=== PATIENT | female | born 1990 | race Caucasian/White ===

== ENCOUNTER 2017-07-01 09:24 | Emergency (ER) | payer BC ==
[2017-07-01] MEDS ORDERED: KETOROLAC TROMETHAMINE INJ/PF 30 MG/1 ML SDV IV ONE (10:14)
[2017-07-01] MEDS ORDERED: NORMAL SALINE 1000 ML 1,000 ML IV ONE (10:14)
[2017-07-01] MEDS ORDERED: ONDANSETRON HCL INJ/PF 4 MG/2 ML SDV IV ONE (10:15)
--- NOTE | 2017-07-01 10:42 | ER Document Report ---
ED Medical Screen (RME) - General Chief Complaint: Lower Abdominal Pain Stated Complaint: ABDOMINAL PAIN Time Seen by Provider: 07/01/17 10:03 Notes: 26-year-old female who complains of a sudden onset of cramping squeezing right lower quadrant abdominal pain associated with nausea. Also admits that she has frequent nausea and vomiting, does not think that this nausea and vomiting is any different than her usual but states that the pain is much worse than her usual. Admits to being on her menstrual cycle for the past 3 weeks and the bleeding is getting later. Has not taken any medication for her pain since she states all pain medication makes her vomit and it does not make her feel any better. TRAVEL OUTSIDE OF THE [place] IN LAST 30 DAYS: No - Related Data Allergies/Adverse Reactions: acetaminophen [From Tylenol] Allergy (Mild, Verified 07/01/17 09:35) aspirin [Aspirin] Allergy (Verified 07/01/17 09:35) Past Medical History - General Information source: Patient - Social History Chew tobacco use (# tins/day): No Frequency of alcohol use: None Drug Abuse: None Neurological Medical History: Reports: Hx Migraine, Hx Seizures Endocrine Medical History: Reports: Hx Hypothyroidism Renal/ Medical History: Denies: Hx Kidney Stones, Hx Peritoneal Dialysis GI Medical History: Reports: Hx Gastroesophageal Reflux Disease, Hx Irritable Bowel, Hx Ulcer Skin Medical History: Reports Hx Eczema Psychiatric Medical History: Reports: Hx Depression Past Surgical History: Reports: Hx Section - Immunizations Immunizations up to date: Yes Hx Diphtheria, Pertussis, Tetanus Vaccination: Yes Physical Exam - Vital signs Vitals: Temp Pulse Resp BP Pulse Ox 98.6 F 111 H 24 H 141/100 H 99 07/01/17 09:34 07/01/17 09:34 07/01/17 09:34 07/01/17 09:34 07/01/17 09:34 - Notes Notes: Bent over, holding her abdomen, appears uncomfortable, right lower quadrant and suprapubic tenderness palpation. Course - Vital Signs Vital signs: Temp Pulse Resp BP Pulse Ox 98.6 F 111 H 24 H 141/100 H 99 07/01/17 09:34 07/01/17 09:34 07/01/17 09:34 07/01/17 09:34 07/01/17 09:34 - Laboratory Result Diagrams: 07/01/17 10:20 07/01/17 10:20
[2017-07-01 10:53] LABS: ABSOLUTE LYMPHOCYTES (AUTO) 1.2 10^3/uL (0.5-4.7); ABSOLUTE MONOCYTES (AUTO) 0.4 10^3/uL (0.1-1.4); ABSOLUTE NEUT (AUTO) 7.9 10^3/uL (1.7-8.2); BASOPHILS % (AUTO) 0.5 % (0-2); EOSINOPHILS % (AUTO) 0.3 % (0-6); HEMATOCRIT 42.7 % (36.0-47.0); HEMOGLOBIN 14.5 g/dL (12.0-15.5); HGB HCT DIFFERENCE 0.8; LYMPHOCYTES % (AUTO) 12.3 % (13-45); MEAN CORPUSCULAR HEMOGLOBIN 28.9 pg (27.0-33.4); MEAN CORPUSCULAR HGB CONC 33.9 g/dL (32.0-36.0); MEAN CORPUSCULAR VOLUME 85 fl (80-97); MONOCYTES % (AUTO) 4.6 % (3-13); RED CELL DISTRIBUTION WIDTH 12.9 % (11.5-14.0); SEGMENTED NEUTROPHILS % (AUTO) 82.3 % (42-78); WHITE BLOOD COUNT 9.6 10^3/uL (4.0-10.5)
--- NOTE | 2017-07-01 11:09 | ER Document Report ---
ED GI/ - General Chief Complaint: Lower Abdominal Pain Stated Complaint: ABDOMINAL PAIN Time Seen by Provider: 07/01/17 10:03 Mode of Arrival: Ambulatory Information source: Patient TRAVEL OUTSIDE OF THE [place] IN LAST 30 DAYS: No - HPI Patient complains to provider of: Pelvic pain Onset: This morning Timing/Duration: Sudden Quality of pain: Sharp, Throbbing Severity at maximum: Severe Severity in ED: Moderate Pain Level: 4 Location: Pelvis Associated symptoms: Nausea, Vomiting Exacerbated by: Denies Relieved by: Denies Similar symptoms previously: Yes Recently seen / treated by doctor: Yes Notes: 07/01/17 11:07 Patient is a 26-year-old female presenting to the emergency room today complaining of sharp throbbing right-sided pelvic pain that woke her from sleep around 5:00 this morning and has been worsening since, she reports a history of endometriosis as well as gastroparesis, she did have a few episodes of vomiting today despite taking Nexium, and continued nausea, she generally has vaginal bleeding for 3 weeks out of the month and then has 1 week off, she has tried several different medical management techniques in the past including oral control, she denies any vaginal discharge besides bleeding, no dysuria or urinary frequency, no fever, no diarrhea - Related Data Allergies/Adverse Reactions: acetaminophen [From Tylenol] Allergy (Mild, Verified 07/01/17 09:35) aspirin [Aspirin] Allergy (Verified 07/01/17 09:35) Past Medical History - General Information source: Patient - Social History Smoking Status: Never Smoker Chew tobacco use (# tins/day): No Frequency of alcohol use: None Drug Abuse: None Family History: Arthritis, CAD, CVA, DM, Hyperlipidemia, Hypertension, Malignancy, Thyroid Disfunction Patient has suicidal ideation: No Patient has homicidal ideation: No Neurological Medical History: Reports: Hx Migraine, Hx Seizures Endocrine Medical History: Reports: Hx Hypothyroidism Renal/ Medical History: Denies: Hx Kidney Stones, Hx Peritoneal Dialysis GI Medical History: Reports: Hx Gastroesophageal Reflux Disease, Hx Irritable Bowel, Hx Ulcer Skin Medical History: Reports Hx Eczema Psychiatric Medical History: Reports: Hx Depression Past Surgical History: Reports: Hx Section - Immunizations Immunizations up to date: Yes Hx Diphtheria, Pertussis, Tetanus Vaccination: Yes Review of Systems - Review of Systems Constitutional: No symptoms reported EENT: No symptoms reported Cardiovascular: No symptoms reported Respiratory: No symptoms reported Gastrointestinal: See HPI Genitourinary: See HPI Female Genitourinary: See HPI Musculoskeletal: No symptoms reported Skin: No symptoms reported Hematologic/Lymphatic: No symptoms reported Neurological/Psychological: No symptoms reported -: Yes All other systems reviewed and negative Physical Exam - Vital signs Vitals: Temp Pulse Resp BP Pulse Ox 98.6 F 111 H 24 H 141/100 H 99 07/01/17 09:34 07/01/17 09:34 07/01/17 09:34 07/01/17 09:34 07/01/17 09:34 Interpretation: Tachycardic - General General appearance: Appears well, Alert - HEENT Head: Normocephalic, Atraumatic Eyes: Normal Pupils: PERRL - Respiratory Respiratory status: No respiratory distress Chest status: Nontender Breath sounds: Normal Chest palpation: Normal - Cardiovascular Rhythm: Regular Heart sounds: Normal auscultation Murmur: No - Abdominal Inspection: Normal Distension: No distension Bowel sounds: Normal Tenderness: Tender - Tenderness to palpate in the right pelvis Organomegaly: No organomegaly - Back Back: Normal, Nontender - Extremities General upper extremity: Normal inspection, Nontender, Normal color, Normal ROM , Normal temperature General lower extremity: Normal inspection, Nontender, Normal color, Normal ROM , Normal temperature, Normal weight bearing. No: Omayra's sign - Neurological Neuro grossly intact: Yes Cognition: Normal Orientation: AAOx4 [place] Coma Scale Eye Opening: Spontaneous [place] Coma Scale Verbal: Oriented [place] Coma Scale Motor: Obeys Commands [place] Coma Scale Total: 15 Speech: Normal Motor strength normal: LUE, RUE, LLE, RLE Sensory: Normal - Psychological Associated symptoms: Normal affect, Normal mood - Skin Skin Temperature: Warm Skin Moisture: Dry Skin Color: Normal Course - Re-evaluation Re-evalutation: 07/01/17 16:29 Patient resting comfortably, reports feeling much better, lab and imaging findings were discussed with patient at bedside which are unremarkable, patient was discharged with prescription for pain medication and Colace, advised to follow-up with a primary care provider and 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 as well as OB/ CT TECH or return if symptoms worsen, patient acknowledges understanding and agreement with this plan - Vital Signs Vital signs: Temp Pulse Resp BP Pulse Ox 98.2 F 111 H 16 105/88 H 100 07/01/17 14:55 07/01/17 09:34 07/01/17 14:55 07/01/17 14:55 07/01/17 14:55 - Laboratory Result Diagrams: 07/01/17 10:20 07/01/17 10:20 Laboratory results interpreted by me: 07/01/17 07/01/17 07/01/17 10:20 10:20 10:20 Seg Neutrophils % 82.3 H Lymphocytes % 12.3 L Calcium 10.5 H Total Protein 8.6 H Albumin 5.1 H Urine Blood SMALL H - Diagnostic Test Radiology reviewed: Image reviewed, Reports reviewed Discharge - Discharge Clinical Impression: Abdominal pain Qualifiers: Abdominal location: generalized Qualified Code(s): R10.84 - Generalized abdominal pain Condition: Stable Disposition: HOME, SELF-CARE Instructions: Abdominal Pain ([facility]) Additional Instructions: Follow up with your primary care provider in one to 2 days. Return to the emergency room immediately if symptoms worsen or any additional concerns. Prescriptions: Docusate Sodium [Colace 100 mg Capsule] 100 mg PO BID #60 capsule Oxycodone HCl 5 mg PO Q6 #10 tablet
[2017-07-01 11:22] LABS: ALANINE AMINOTRANSFERASE 38 U/L (9-52); ALBUMIN 5.1 g/dL (3.5-5.0); ALKALINE PHOSPHATASE 80 U/L (38-126); ANION GAP 13 (5-19); ASPARTATE AMINO TRANSFERASE 24 U/L (14-36); BILIRUBIN,DIRECT 0.4 mg/dL (0.0-0.4); BILIRUBIN,TOTAL 0.6 mg/dL (0.2-1.3); BLOOD UREA NITROGEN 9 mg/dL (7-20); CALCIUM 10.5 mg/dL (8.4-10.2); CARBON DIOXIDE 27 mmol/L (22-30); CHLORIDE 104 mmol/L (98-107); CREATININE RESULT 0.88 mg/dL (0.52-1.25); GLUCOSE 99 mg/dL (75-110); POTASSIUM 4.5 mmol/L (3.6-5.0); SODIUM 143.8 mmol/L (137-145); TOTAL PROTEIN 8.6 g/dL (6.3-8.2)
--- NOTE | 2017-07-01 12:19 | RADIOLOGY REPORT (SQ) ---
EXAM DESCRIPTION: U/S NON OB PEL TV W/DOPPLER COMPLETED DATE/TIME: 07/01/2017 12:09 pm REASON FOR STUDY: right pelvic pain COMPARISON: 12/29/2013 TECHNIQUE: Dynamic and static grayscale images acquired of the pelvis via transvaginal approach and recorded on PACS. Additional selected color Doppler and spectral images recorded. LIMITATIONS: None. FINDINGS: UTERUS: Contour normal. No mass. ENDOMETRIAL STRIPE: No thickening. There is a small amount of fluid in the endometrial canal. CERVIX: 3.1 cm. No nabothian cysts. RIGHT OVARY: No abnormal masses. RIGHT OVARY DOPPLER: Normal arterial vascular flow without evidence for torsion. LEFT OVARY: No abnormal masses. LEFT OVARY DOPPLER: Normal arterial vascular flow without evidence for torsion. FREE FLUID: None noted. OTHER: No other significant finding. MEASUREMENTS: UTERUS: 7.9 x 4.1 x 4.3 cm. ENDOMETRIAL STRIPE: 6 mm. RIGHT OVARY: 3.2 x 1.9 x 1.7 cm. LEFT OVARY: 2 x 2 x 2.1 cm. IMPRESSION: NORMAL TRANSVAGINAL PELVIC ULTRASOUND. TECHNICAL DOCUMENTATION: JOB ID: [id number]- All Rights Reserved
--- NOTE | 2017-07-01 13:15 | RADIOLOGY REPORT (SQ) ---
EXAM DESCRIPTION: CT ABD/PELVIS WITH IV ONLY COMPLETED DATE/TIME: 07/01/2017 12:58 pm REASON FOR STUDY: rlq pain COMPARISON: Pelvic ultrasound 07/01/2017 TECHNIQUE: CT scan of the abdomen and pelvis performed using helical scanning technique with dynamic intravenous contrast injection. No oral contrast. Images reviewed with lung, soft tissue, and bone windows. Reconstructed coronal and sagittal MPR imag es reviewed. Delayed images for evaluation of the urinary system also acquired. All images stored on PACS. All CT scanners at this facility use dose modulation, iterative reconstruction, and/or weight based d osing when appropriate to reduce radiation dose to as low as reasonably achievable (ALARA). [facility]: Dose Right [facility]: CareDose [facility]: Dose Right [facility]: Teradose 4D [facility]: [employer] CONTRAST TYPE AND DOSE: contrast/concentration: Isovue 370.00 mg/ml; Total Contrast Delivered: 71.0 ml; Total Saline Delivered: 66.0 ml RENAL FUNCTION: None required. The patient is less than 50 years old. RADIATION DOSE: Up-to-date CT equipment and radiation dose reduction techniques were employed. CTDIv ol: 7.6 - 10.8 mGy. DLP: 855 mGy-cm.. LIMITATIONS: None. FINDINGS: LOWER CHEST: No significant findings. No nodules or infiltrates. LIVER: Normal size. No masses. No dilated ducts. SPLEEN: Normal size. No focal lesions. PANCREAS: No masses. No significant calcifications. No adjacent inflammation or peripancreatic fluid collections. Pancreatic duct not dilated. GALLBLADDER: No identified stones by CT criteria. No inflammatory changes to suggest cholecystitis. ADRENAL GLANDS: No significant masses or asymmetry. RIGHT KIDNEY AND URETER: No solid masses. No significant calcifications. No hydronephrosis or hyd roureter. LEFT KIDNEY AND URETER: No solid masses. No significant calcifications. No hydronephrosis or hydr oureter. AORTA AND VESSELS: No aneurysm. No dissection. Renal arteries, SMA, celiac without stenosis. RETROPERITONEUM: No retroperitoneal adenopathy, hemorrhage or masses. BOWEL AND PERITONEAL CAVITY: No masses or inflammatory changes. No free fluid or peritoneal masses. Moderate stool in the ascending colon and transverse colon. APPENDIX: Normal. Best shown on coronal reconstruction images 31 through 35 PELVIS: No mass. No free fluid. Normal bladder. ABDOMINAL WALL: No masses. No hernias. 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 OTHER: No other significant finding. IMPRESSION: NO SIGNIFICANT OR ACUTE FINDING IN THE ABDOMEN OR PELVIS ON CT SCAN WITH IV CONTRAST. TECHNICAL DOCUMENTATION: JOB ID: [id number] Quality ID # [id number]: Final reports with documentation of one or more dose reduction techniques (e.g., Au tomated exposure control, adjustment of the mA and/or kV according to patient size, use of iterative reconstruction technique) 2010 [employer]- All Rights Reserved
[2017-07-01 14:13] LABS: APPEARANCE,URINE CLEAR; BILIRUBIN,URINE NEGATIVE (NEGATIVE); GLUCOSE, URINE NEGATIVE (NEGATIVE); KETONES,URINE NEGATIVE (NEGATIVE); LEUKOCYTE ESTERASE,URINE NEGATIVE (NEGATIVE); NITRITE,URINE NEGATIVE (NEGATIVE); PROTEIN,URINE NEGATIVE (NEGATIVE); URINE SPECIFIC GRAVITY 1.006; UROBILINOGEN,URINE NEGATIVE mg/dL (<2.0)
[2017-07-01 14:56] VITALS: BP 105/88
== END 2017-07-01 15:00 | disposition home or self-care (01) ==
LOC: ER 09:24
DX: R10.84 Generalized abdominal pain (principal); R10.30 Lower abdominal pain, unspecified; R10.2 Pelvic and perineal pain; R11.2 Nausea with vomiting, unspecified; E03.9 Hypothyroidism, unspecified; Z88.6 Allergy status to analgesic agent
CPT/HCPCS: 99284; 96361; 96374; 96375; 36415; 84703; 85025; 80053; 81001; 76830; 93976; 74177; J1885; J2405; J7030

== ENCOUNTER 2018-03-10 22:51 | Emergency (ER) | payer BC ==
--- NOTE | 2018-03-10 23:08 | ER Document Report ---
ED Extremity Problem, Lower - General Chief Complaint: Knee Injury Stated Complaint: LEFT LEG INJURY Time Seen by Provider: 03/10/18 22:57 Notes: Patient is a 27-year-old female that comes by EMS for chief complaint of leg injury and ankle injury. She states she was running, she accidentally stepped in a hole where a water line cap displaced when she was running, she inverted her left ankle, she reports pain up her leg, and the ankle, and in the foot. She was given 75 mcg of fentanyl IV by EMS. She denies any other injuries. She takes no daily medications. LMP within the past month. TRAVEL OUTSIDE OF THE [place] IN LAST 30 DAYS: No - Related Data Allergies/Adverse Reactions: acetaminophen [From Tylenol] Allergy (Mild, Verified 07/01/17 09:35) aspirin [Aspirin] Allergy (Verified 07/01/17 09:35) Past Medical History - General Information source: Patient - Social History Smoking Status: Never Smoker Frequency of alcohol use: None Drug Abuse: None Lives with: Family Family History: Arthritis, CAD, CVA, DM, Hyperlipidemia, Hypertension, Malignancy, Thyroid Disfunction Neurological Medical History: Reports: Hx Migraine, Hx Seizures Endocrine Medical History: Reports: Hx Hypothyroidism Renal/ Medical History: Denies: Hx Kidney Stones, Hx Peritoneal Dialysis GI Medical History: Reports: Hx Gastroesophageal Reflux Disease, Hx Irritable Bowel, Hx Ulcer Skin Medical History: Reports Hx Eczema Psychiatric Medical History: Reports: Hx Depression Past Surgical History: Reports: Hx Section - Immunizations Immunizations up to date: Yes Hx Diphtheria, Pertussis, Tetanus Vaccination: Yes Review of Systems - Review of Systems Constitutional: No symptoms reported EENT: No symptoms reported Cardiovascular: No symptoms reported Respiratory: No symptoms reported Gastrointestinal: No symptoms reported Genitourinary: No symptoms reported Female Genitourinary: No symptoms reported Musculoskeletal: See HPI Skin: No symptoms reported Hematologic/Lymphatic: No symptoms reported Neurological/Psychological: No symptoms reported Physical Exam - Vital signs Vitals: Temp Pulse Resp BP Pulse Ox 98.2 F 99 19 116/74 100 03/11/18 00:59 03/11/18 00:59 03/11/18 00:59 03/11/18 00:59 03/11/18 00:59 - Notes Notes: GENERAL: Alert, interacts well. No acute distress. HEAD: Normocephalic, atraumatic. EYES: Pupils equal, round, and reactive to light. Extraocular movements intact. ENT: Oral mucosa moist, tongue midline. NECK: Full range of motion. Supple. Trachea midline. LUNGS: Clear to auscultation bilaterally, no wheezes, rales, or rhonchi. No respiratory distress. HEART: Regular rate and rhythm. No murmur ABDOMEN: Soft, non-tender. Non-distended. Bowel sounds present in all 4 quadrants. EXTREMITIES: M tender over the left lateral malleolus, dorsal left foot, and over the left fibula area proximally. No swelling except minimal swelling around the malleolus, normal distal neurovascular exam, normal range of motion of ankle, knee, hip. Normal lower extremity exam otherwise. BACK: no cervical, thoracic, lumbar midline tenderness. No saddle anesthesia, normal distal neurovascular exam. NEUROLOGICAL: Alert and oriented x3. Normal speech. [cranial nerves II through XII grossly intact]. PSYCH: Normal affect, normal mood. SKIN: Warm, dry, normal turgor. No rashes or lesions noted. Course - Re-evaluation Re-evalutation: Patient with tenderness over the lateral malleolus, foot, and left fibula area. X-rays all unremarkable, no concerning physical exam findings including no pain out of proportion suggesting compartment syndrome. Suspect this was a sprain. Patient can ambulate. Provided with crutches, ankle stirrup, recommendations, follow-up, return precautions. Patient is not allergic to NSAIDs including aspirin per her report. - Vital Signs Vital signs: Temp Pulse Resp BP Pulse Ox 98.2 F 99 19 116/74 100 03/11/18 00:59 03/11/18 00:59 03/11/18 00:59 03/11/18 00:59 03/11/18 00:59 Procedures - Immobilization Left ankle Pre-Proc Neuro Vasc Exam: Normal Immobilizer type: Ankle stirrup Performed by: RN Post-Proc Neuro Vasc Exam: Normal Alignment checked and good: Yes Discharge - Discharge Clinical Impression: Left leg pain, Left foot pain Left ankle injury Qualifiers: Encounter type: initial encounter Qualified Code(s): S99.912A - Unspecified injury of left ankle, initial encounter Condition: Stable Disposition: HOME, SELF-CARE Additional Instructions: Your evaluation is consistent with a sprain to the left ankle, no fractures, dislocation, or other concerning abnormality noted. It is important that you ice (3-4 times a day for 10-15 minutes), elevate, use the crutches and brace, and take an anti-inflammatory. Return to normal activity as tolerated. Return for any concerning symptoms including severe swelling or pain. Prescriptions: Naproxen 500 mg PO BID PRN #14 tablet PRN Reason: Forms: Return to Work
[2018-03-10] MEDS ORDERED: MORPHINE SULFATE 10 MG/ML INJ IV ONE (23:19)
[2018-03-10] MEDS ORDERED: ONDANSETRON HCL INJ/PF 4 MG/2 ML SDV IV ONE (23:19)
--- NOTE | 2018-03-11 00:13 | RADIOLOGY REPORT (SQ) ---
EXAM DESCRIPTION: XR TIBIA FIBULA 2 VIEWS CLINICAL HISTORY: 27 years Female, inverted ankle, leg pain COMPARISON: None. Findings: Bones, joints, and soft tissues of the XR LEFT TIBIA FIBULA 2 VIEWS appear intact. IMPRESSION: No acute findings.
--- NOTE | 2018-03-11 00:14 | RADIOLOGY REPORT (SQ) ---
EXAM DESCRIPTION: XR FOOT 3 OR MORE VIEWS CLINICAL HISTORY: 27 years Female, injury, pain COMPARISON: None. Findings: Bones, joints, and soft tissues of the XR LEFT FOOT 3 VIEWS appear intact. IMPRESSION: No acute findings.
--- NOTE | 2018-03-11 00:14 | RADIOLOGY REPORT (SQ) ---
EXAM DESCRIPTION: XR ANKLE 2 VIEWS CLINICAL HISTORY: 27 years Female, ankle inversion, pain, swelling COMPARISON: None. Findings: Bones, joints, and soft tissues of the XR LEFT ANKLE 3 VIEWS appear intact. IMPRESSION: No acute findings.
[2018-03-11 01:00] VITALS: BP 116/74
== END 2018-03-11 01:30 | disposition home or self-care (01) ==
LOC: ER 22:51
DX: S99.912A Unspecified injury of left ankle, initial encounter (principal); M79.605 Pain in left leg; M79.672 Pain in left foot; W22.09XA Striking against other stationary object, initial encounter; Y93.02 Activity, running; Z88.6 Allergy status to analgesic agent
CPT/HCPCS: 99284; 96374; 96375; 73610; 73630; 73590; L4350; J2270; J2405

== ENCOUNTER 2018-07-21 20:59 | Emergency (ER) | payer BC ==
[2018-07-21 22:08] LABS: ABSOLUTE EOSINOPHILS # (AUTO) 0.1 10^3/uL (0.0-0.6); ABSOLUTE MONOCYTES (AUTO) 0.6 10^3/uL (0.1-1.4); ABSOLUTE NEUT (AUTO) 8.6 10^3/uL (1.7-8.2); BASOPHILS % (AUTO) 0.4 % (0-2); EOSINOPHILS % (AUTO) 0.5 % (0-6); HEMATOCRIT 40.3 % (36.0-47.0); HEMOGLOBIN 13.7 g/dL (12.0-15.5); LYMPHOCYTES % (AUTO) 17.6 % (13-45); MEAN CORPUSCULAR HEMOGLOBIN 27.9 pg (27.0-33.4); MEAN CORPUSCULAR HGB CONC 33.9 g/dL (32.0-36.0); MEAN CORPUSCULAR VOLUME 82 fl (80-97); MONOCYTES % (AUTO) 5.2 % (3-13); PLATELET COUNT 499 10^3/uL (150-450); RED BLOOD COUNT 4.89 10^6/uL (3.72-5.28); RED CELL DISTRIBUTION WIDTH 13.3 % (11.5-14.0); SEGMENTED NEUTROPHILS % (AUTO) 76.3 % (42-78); TOTAL CELLS COUNTED % (AUTO) 100 %; WHITE BLOOD COUNT 11.3 10^3/uL (4.0-10.5)
[2018-07-21 22:11] LABS: APPEARANCE,URINE CLEAR; BILIRUBIN,URINE NEGATIVE (NEGATIVE); COLOR,URINE STRAW; GLUCOSE, URINE NEGATIVE (NEGATIVE); KETONES,URINE NEGATIVE (NEGATIVE); LEUKOCYTE ESTERASE,URINE NEGATIVE (NEGATIVE); NITRITE,URINE NEGATIVE (NEGATIVE); PROTEIN,URINE NEGATIVE (NEGATIVE); URINE SPECIFIC GRAVITY 1.008; UROBILINOGEN,URINE NEGATIVE mg/dL (<2.0)
[2018-07-21 22:25] LABS: ALANINE AMINOTRANSFERASE 17 U/L (9-52); ALBUMIN 4.7 g/dL (3.5-5.0); ALKALINE PHOSPHATASE 71 U/L (38-126); ANION GAP 12 (5-19); ASPARTATE AMINO TRANSFERASE 19 U/L (14-36); BILIRUBIN,DIRECT 0.2 mg/dL (0.0-0.4); BILIRUBIN,TOTAL 0.5 mg/dL (0.2-1.3); BLOOD UREA NITROGEN 8 mg/dL (7-20); CALCIUM 10.4 mg/dL (8.4-10.2); CARBON DIOXIDE 23 mmol/L (22-30); CHLORIDE 106 mmol/L (98-107); GLUCOSE 108 mg/dL (75-110); LIPASE 198.5 U/L (23-300); POTASSIUM 4.5 mmol/L (3.6-5.0); SODIUM 141.4 mmol/L (137-145)
[2018-07-21] MEDS ORDERED: KETOROLAC TROMETHAMINE INJ/PF 30 MG/1 ML SDV IV ONE (22:47)
[2018-07-21] MEDS ORDERED: HYOSCYAMINE SULFATE 0.125 MG TABLET PO ONE (22:47)
[2018-07-21] MEDS ORDERED: HALOPERIDOL LACTATE INJ 5 MG/1 ML VIAL IV ONE (22:47)
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
[2018-07-21] MEDS ORDERED: HYOSCYAMINE SULFATE 0.125 MG TABLET ONE (23:03)
[2018-07-22] MEDS ORDERED: DIPHENHYDRAMINE HCL 50 MG/ML VIAL IV ONE ×2 (00:24→05:55)
[2018-07-22] MEDS ORDERED: DIPHENHYDRAMINE HCL 50 MG/ML VIAL ONE (00:39)
[2018-07-22] MEDS ORDERED: NORMAL SALINE 1000 ML 1,000 ML IV ONE ×3 (01:06→06:48)
[2018-07-22] MEDS ORDERED: LORAZEPAM INJ 2 MG/1 ML VIAL IV ONE ×2 (01:23→04:34)
--- NOTE | 2018-07-22 04:38 | ER Document Report ---
Doctor's Note Notes: 07/22/18 04:38 Notified by nursing staff that patient remains tachycardic at 120, all of her other symptoms are solved and she is feeling much better, additional IV fluids and 1 mg of Ativan, will reevaluate for disposition once these medications are administered (TALI ACEVEDO) 07/22/18 07:40 Patient signed out to me by Dr. Tamiko james who received the patient in signout by Dr. Perla. Patient was seen for abdominal pain and received Haldol which did resolve her abdominal pain. She did have a dystonic reaction for which she received Benadryl and Levsin. Patient has been resting comfortably and has no complaints but has remained tachycardic. After reviewing the side effects of the medication she receives it does appear that Levsin can cause tachycardia. D-dimer was obtained and negative. EKG shows sinus tachycardia at a rate of 142. Patient has had fluctuating heart rate between 110 and 133. On review of her previous medical records she does have a history of tachycardia with heart rates in the 110-115. We will continue to monitor. Patient reevaluated and no longer tremulous. She denies any abdominal pain. Heart rate is now 106. Patient will be discharged home. 07/22/18 08:11 (JENISE VERDUGO)
[2018-07-22] MEDS ORDERED: LORAZEPAM INJ 2 MG/1 ML VIAL ONE (07:33)
[2018-07-22 09:42] VITALS: BP 112/69
--- NOTE | 2018-07-22 09:42 | EKG REPORT ---
SEVERITY:- ABNORMAL ECG - SINUS TACHYCARDIA BORDERLINE LEFT AXIS DEVIATION : Confirmed by: Jorge Lira MD 22-Jul-2018 09:42:16
[2018-07-22 11:20] LABS: URINE AMPHETAMINES SCREEN NEGATIVE; URINE BARBITURATES SCREEN NEGATIVE; URINE BENZODIAZEPINES SCREEN NEGATIVE; URINE COCAINE SCREEN NEGATIVE; URINE MARIJUANA (THC) SCREEN NEGATIVE; URINE METHADONE SCREEN NEGATIVE; URINE PHENCYCLIDINE SCREEN NEGATIVE
== END 2018-07-22 09:52 | disposition home or self-care (01) ==
LOC: ER 20:59 → UNDOADMOB 07-22 09:34 → EH 07-22 09:34 → ER 07-22 09:52
DX: R10.84 Generalized abdominal pain (principal); R11.0 Nausea; R00.0 Tachycardia, unspecified; T50.905A Adverse effect of unspecified drugs, medicaments and biological substances, initial encounter; Z88.6 Allergy status to analgesic agent; Z87.19 Personal history of other diseases of the digestive system
CPT/HCPCS: 93005; 96376; 99284; 96361; 96374; 96375; 36415; 83690; 85025; 81025; 80053; 81001; 80307; 85379; 93010; J1200; J1630; J1885; J2060; J7030

== ENCOUNTER 2019-08-06 10:57 | Emergency (ER) | payer OTHER, BC ==
[2019-08-06] MEDS ORDERED: KETOROLAC TROMETHAMINE 60 MG/2 ML SDV IM ONE (11:47)
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
[2019-08-06 14:13] VITALS: BP 105/74
== END 2019-08-06 13:53 | disposition home or self-care (01) ==
LOC: ER 10:57
DX: S90.01XA Contusion of right ankle, initial encounter (principal); S90.31XA Contusion of right foot, initial encounter; S93.401A Sprain of unspecified ligament of right ankle, initial encounter; V89.2XXA Person injured in unspecified motor-vehicle accident, traffic, initial encounter; E03.9 Hypothyroidism, unspecified
CPT/HCPCS: 99283; 96374; 73610; 73630; J1885

== ENCOUNTER 2019-10-09 10:49 | Emergency (ER) | payer BC, OTHER ==
[2019-10-09] MEDS ORDERED: ONDANSETRON HCL INJ/PF 4 MG/2 ML SDV IV ONE ×2 (10:57→11:56)
[2019-10-09] MEDS ORDERED: NORMAL SALINE 1000 ML 1,000 ML IV ONE (10:58)
--- NOTE | 2019-10-09 10:59 | ER Document Report ---
ED Medical Screen (RME) - General Chief Complaint: Vomiting/Diarrhea Stated Complaint: VOMITING,DIARRHEA Time Seen by Provider: 10/09/19 10:57 Primary Care Provider: GAVIN GAN MD [Primary Care Provider] - Follow up as needed Mode of Arrival: Wheelchair Notes: 28-year-old female presented to ED for complaint of cough and cold symptoms x3 days that developed into nausea vomiting and diarrhea. She states her GI doctor did give her a prescription for Zofran and she had that at 5:00 this morning but it is not stopped her vomiting. Patient is alert oriented respirations regular nonlabored speaking in full sentences. Complaint of body aches all over. I have greeted and performed a rapid initial assessment of this patient. A comprehensive ED assessment and evaluation of the patient, analysis of test results and completion of medical decision making process will be conducted by an additional ED providers. TRAVEL OUTSIDE OF THE [place] IN LAST 30 DAYS: No - Related Data Allergies/Adverse Reactions: haloperidol [From Haldol] Allergy (Verified 10/09/19 10:52) Past Medical History Neurological Medical History: Reports: Hx Migraine, Hx Seizures Endocrine Medical History: Reports: Hx Hypothyroidism Renal/ Medical History: Denies: Hx Kidney Stones, Hx Peritoneal Dialysis GI Medical History: Reports: Hx Gastroesophageal Reflux Disease, Hx Irritable Bowel, Hx Ulcer Skin Medical History: Reports Hx Eczema Psychiatric Medical History: Reports: Hx Depression Past Surgical History: Reports: Hx Section - Immunizations Immunizations up to date: Yes Hx Diphtheria, Pertussis, Tetanus Vaccination: Yes Physical Exam - Vital signs Vitals: Temp Pulse Resp BP Pulse Ox 98.5 F 122 H 22 H 120/75 98 10/09/19 10:53 10/09/19 10:53 10/09/19 10:53 10/09/19 10:53 10/09/19 10:53 Course - Vital Signs Vital signs: Temp Pulse Resp BP Pulse Ox 98.5 F 122 H 22 H 120/75 98 10/09/19 10:53 10/09/19 10:53 10/09/19 10:53 10/09/19 10:53 10/09/19 10:53 Doctor's Discharge - Discharge Referrals: GAVIN GAN MD [Primary Care Provider] - Follow up as needed
[2019-10-09] MEDS ORDERED: PROMETHAZINE HCL INJ 25 MG/1 ML VIAL IV ONE (11:35)
[2019-10-09 11:51] LABS: ABSOLUTE BASOPHILS # (AUTO) 0.1 10^3/uL (0.0-0.2); ABSOLUTE LYMPHOCYTES (AUTO) 0.7 10^3/uL (0.5-4.7); ABSOLUTE MONOCYTES (AUTO) 0.7 10^3/uL (0.1-1.4); ABSOLUTE NEUT (AUTO) 5.6 10^3/uL (1.7-8.2); BASOPHILS % (AUTO) 0.9 % (0-2); HEMATOCRIT 44.4 % (36.0-47.0); HEMOGLOBIN 14.9 g/dL (12.0-15.5); LYMPHOCYTES % (AUTO) 10.5 % (13-45); MEAN CORPUSCULAR HEMOGLOBIN 28.5 pg (27.0-33.4); MEAN CORPUSCULAR HGB CONC 33.6 g/dL (32.0-36.0); MEAN CORPUSCULAR VOLUME 85 fl (80-97); MONOCYTES % (AUTO) 9.6 % (3-13); PLATELET COUNT 382 10^3/uL (150-450); RED BLOOD COUNT 5.23 10^6/uL (3.72-5.28); RED CELL DISTRIBUTION WIDTH 13.3 % (11.5-14.0); TOTAL CELLS COUNTED % (AUTO) 100 %; WHITE BLOOD COUNT 7.1 10^3/uL (4.0-10.5)
--- NOTE | 2019-10-09 11:54 | ER Document Report ---
ED GI/ - General Chief Complaint: Nausea/Vomiting/Diarrhea Stated Complaint: VOMITING,DIARRHEA Time Seen by Provider: 10/09/19 10:57 Primary Care Provider: GAVIN GAN MD [Primary Care Provider] - Follow up as needed Mode of Arrival: Wheelchair Notes: CHIEF COMPLAINT: Vomiting and abdominal cramping HPI: 28-year-old female presenting to the emergency department complaining of vomiting and diarrhea over the last 3 days with abdominal cramping. No definite fever, patient's child ill with similar over the last week. Patient states that she lost track of how anytime she threw up yesterday, is only had 3 episodes of vomiting today 2 episodes of cramping but no actual bowel movement. Patient did call her PCP and was prescribed Zofran yesterday but states when it would get on her tongue she would gag and then throw up. ROS: See HPI - all other systems were reviewed and are otherwise negative Constitutional: no fever Eyes: no drainage, no blurred vision ENT: no runny nose, no sore throat Cardiovascular: no chest pain Resp: no SOB, no cough GI: + vomiting, + diarrhea, + abdominal pain : no dysuria Integumentary: no rash Allergy: no hives Musculoskeletal: no extremity pain or swelling Neurological: no numbness/tingling, no weakness MEDICATIONS: I agree with the patient medications as charted by the RN. ALLERGIES: I agree with the allergies as charted by the RN. PAST MEDICAL HISTORY/PAST SURGICAL HISTORY: Reviewed and agree as charted by RN. SOCIAL HISTORY: Reviewed and agree as charted by RN. FAMILY HISTORY: No significant familial comorbid conditions directly related to patient complaint EXAM: Reviewed vital signs as charted by RN. CONSTITUTIONAL: Alert and oriented and responds appropriately to questions. Ill- appearing; well-nourished HEAD: Normocephalic; atraumatic EYES: PERRL; Conjunctivae clear, sclerae non-icteric ENT: normal nose; no rhinorrhea; moist mucous membranes; pharynx without lesions noted NECK: Supple without meningismus; non-tender; no cervical lymphadenopathy, no masses CARD: RRR; no murmurs, no clicks, no rubs, no gallops; symmetric distal pulses RESP: Normal chest excursion without splinting or tachypnea; breath sounds clear and equal bilaterally; no wheezes, no rhonchi, no rales, pulse oximetry ABD/GI: Normal bowel sounds; non-distended; soft, tenderness in the right lower quadrant on palpation, no rebound, no guarding; no palpable organomegaly or masses. BACK: The back appears normal and is non-tender to palpation, there is no CVA tenderness EXT: Normal ROM in all joints; non-tender to palpation; no cyanosis, no effusions, no edema SKIN: Pale color for age and race; warm; dry; good turgor; no acute lesions noted NEURO: Moves all extremities equally; Motor and sensory function intact PSYCH: The patient's mood and manner are appropriate. Grooming and personal hygiene are appropriate. MDM: 28-year-old female with nausea vomiting diarrhea with abdominal cramping, her child is ill with something similar. This is likely a viral etiology she did appear somewhat pale and have some right lower quadrant pain imaging was obtained which did not show acute emergent abnormalities. Lab work does not show acute emergent abnormalities. We will orally challenge, give Bentyl, anticipate discharge home if oral challenge successful TRAVEL OUTSIDE OF THE [place] IN LAST 30 DAYS: No - Related Data Allergies/Adverse Reactions: haloperidol [From Haldol] Allergy (Verified 10/09/19 10:52) Home Medications: [facility] Past Medical History - Social History Smoking Status: Never Smoker Chew tobacco use (# tins/day): No Frequency of alcohol use: None Drug Abuse: None Family History: Arthritis, CAD, CVA, DM, Hyperlipidemia, Hypertension, Malignancy, Thyroid Disfunction Patient has suicidal ideation: No Patient has homicidal ideation: No Neurological Medical History: Reports: Hx Migraine, Hx Seizures Endocrine Medical History: Reports: Hx Hypothyroidism Renal/ Medical History: Denies: Hx Kidney Stones, Hx Peritoneal Dialysis GI Medical History: Reports: Hx Gastroesophageal Reflux Disease, Hx Irritable Bowel, Hx Ulcer Skin Medical History: Reports Hx Eczema Psychiatric Medical History: Reports: Hx Depression Past Surgical History: Reports: Hx Section - Immunizations Immunizations up to date: Yes Hx Diphtheria, Pertussis, Tetanus Vaccination: Yes Physical Exam - Vital signs Vitals: Temp Pulse Resp BP Pulse Ox 98.5 F 122 H 22 H 120/75 98 10/09/19 10:53 10/09/19 10:53 10/09/19 10:53 10/09/19 10:53 10/09/19 10:53 Course - Re-evaluation Re-evalutation: 10/09/19 13:27 Patient coloration is much improved. Still complaining of some abdominal cramping but lab work and imaging studies did not suggest an acute process, likely a viral etiology as her child has been ill with similar this week. Will give Bentyl for cramping, oral challenge if successful anticipate discharge home, she has Zofran at home and would prefer to keep trying that medication for nausea as needed 10/09/19 14:17 Patient tolerating oral fluids, heart rate 105 will discharge home - Vital Signs Vital signs: Temp Pulse Resp BP Pulse Ox 98.1 F 105 H 16 118/69 99 10/09/19 14:09 10/09/19 14:09 10/09/19 14:09 10/09/19 14:09 10/09/19 14:09 - Laboratory Result Diagrams: 10/09/19 11:30 10/09/19 11:30 Laboratory results interpreted by me: 10/09/19 10/09/19 11:30 11:30 Lymph % (Auto) 10.5 L Seg Neutrophils % 79.0 H Potassium 5.7 H BUN 5 L Total Protein 8.5 H Discharge - Discharge Clinical Impression: Nausea vomiting and diarrhea, Tachycardia Condition: Good Disposition: HOME, SELF-CARE Additional Instructions: Continue to take Zofran for nausea. Take Bentyl for abdominal cramping. Your imaging studies and lab work today did not show acute emergent abnormalities this is likely that this is viral in nature. Follow-up with your primary care provider for reevaluation in 1 to 2 days call for appointment. If you develop fever greater than 101 or focal abdominal pain return for reevaluation Prescriptions: Dicyclomine HCl [Bentyl 20 mg Tablet] 20 mg PO QID #14 tablet Referrals: GAVIN GAN MD [Primary Care Provider] - Follow up as needed
[2019-10-09 11:58] LABS: ALBUMIN 4.8 g/dL (3.5-5.0); ALKALINE PHOSPHATASE 72 U/L (38-126); ANION GAP 10 (5-19); ASPARTATE AMINO TRANSFERASE 21 U/L (14-36); BILIRUBIN,DIRECT 0.2 mg/dL (0.0-0.4); BILIRUBIN,TOTAL 0.4 mg/dL (0.2-1.3); BLOOD UREA NITROGEN 5 mg/dL (7-20); CALCIUM 9.7 mg/dL (8.4-10.2); CARBON DIOXIDE 26 mmol/L (22-30); CHLORIDE 103 mmol/L (98-107); GLUCOSE 106 mg/dL (75-110); POTASSIUM 5.7 mmol/L (3.6-5.0); TOTAL PROTEIN 8.5 g/dL (6.3-8.2)
[2019-10-09 13:17] LABS: APPEARANCE,URINE CLEAR; BILIRUBIN,URINE NEGATIVE (NEGATIVE); COLOR,URINE STRAW; GLUCOSE, URINE NEGATIVE (NEGATIVE); KETONES,URINE NEGATIVE (NEGATIVE); PROTEIN,URINE NEGATIVE (NEGATIVE); URINE SPECIFIC GRAVITY 1.003; UROBILINOGEN,URINE NEGATIVE mg/dL (<2.0)
--- NOTE | 2019-10-09 13:17 | RADIOLOGY REPORT (SQ) ---
EXAM DESCRIPTION: CT ABD/PELVIS WITH IV ONLY COMPLETED DATE/TIME: 10/09/2019 12:46 pm REASON FOR STUDY: RLQ pain COMPARISON: 07/01/2017 TECHNIQUE: CT scan of the abdomen and pelvis performed using helical scanning technique with dynamic intravenous contrast injection. No oral contrast. Images reviewed with lung, soft tissue, and bone windows. Reconstructed coronal and sagittal MPR images reviewed. Delayed images for evaluation of the urinary system also acquired. All images stored on PACS. All CT scanners at this facility use dose modulation, iterative reconstruction, and/or weight based d osing when appropriate to reduce radiation dose to as low as reasonably achievable (ALARA). [facility]: Dose Right [facility]: CareDose [facility]: Dose Right [facility]: Teradose 4D [facility]: Emitless CONTRAST TYPE AND DOSE: contrast/concentration: Isovue 350.00 mg/ml; Total Contrast Delivered: 81.0 ml; Total Saline Delivered: 68.0 ml RENAL FUNCTION: None required. The patient is less than 50 years old. RADIATION DOSE: CT Rad equipment meets quality standard of care and radiation dose reduction techniq ues were employed. CTDIvol: 6.8 - 9.5 mGy. DLP: 869 mGy-cm.. LIMITATIONS: None. FINDINGS: LOWER CHEST: No significant findings. No nodules or infiltrates. LIVER: Normal size. No masses. No dilated ducts. SPLEEN: Normal size. No focal lesions. PANCREAS: No masses. No significant calcifications. No adjacent inflammation or peripancreatic fluid collections. Pancreatic duct not dilated. GALLBLADDER: No identified stones by CT criteria. No inflammatory changes to suggest cholecystitis. ADRENAL GLANDS: No significant masses or asymmetry. RIGHT KIDNEY AND URETER: No solid masses. No significant calcifications. No hydronephrosis or hyd roureter. LEFT KIDNEY AND URETER: No solid masses. No significant calcifications. No hydronephrosis or hydr oureter. AORTA AND VESSELS: No aneurysm. No dissection. Renal arteries, SMA, celiac without stenosis. RETROPERITONEUM: No retroperitoneal adenopathy, hemorrhage or masses. BOWEL AND PERITONEAL CAVITY: No masses or inflammatory changes. No free fluid or peritoneal masses. APPENDIX: Normal. PELVIS: No mass. No free fluid. Normal bladder. ABDOMINAL WALL: No masses. No hernias. BONES: No significant or acute findings. OTHER: No other significant finding. IMPRESSION: No acute CT abnormality of the abdomen or pelvis to explain right lower quadrant abdomin al pain. Normal appendix. TECHNICAL DOCUMENTATION: JOB ID: [id number] Quality ID # [id number]: Final reports with documentation of one or more dose reduction techniques (e.g., Au tomated exposure control, adjustment of the mA and/or kV according to patient size, use of iterative reconstruction technique) 2010 [employer]- All Rights Reserved Reading location - IP/workstation name: [email or web address]
[2019-10-09] MEDS ORDERED: DICYCLOMINE HCL 20 MG TABLET PO ONE (13:33)
[2019-10-09 14:11] VITALS: BP 118/69
== END 2019-10-09 14:29 | disposition home or self-care (01) ==
LOC: ER 10:49
DX: R11.2 Nausea with vomiting, unspecified (principal); R19.7 Diarrhea, unspecified; R00.0 Tachycardia, unspecified; R10.31 Right lower quadrant pain; R10.813 Right lower quadrant abdominal tenderness; Z88.8 Allergy status to other drugs, medicaments and biological substances; Z87.19 Personal history of other diseases of the digestive system
CPT/HCPCS: 99284; 96361; 96374; 36415; 84703; 85025; 80053; 81001; 74177; J3490; J2405; J7030

== ENCOUNTER 2019-12-03 09:36 | Emergency (ER) | payer BC ==
--- NOTE | 2019-12-03 10:35 | ER Document Report ---
HPI - HPI Time Seen by Provider: 12/03/19 10:25 Pain Level: 3 Context: Patient is a 29-year-old female who presents emergency department with a chief complaint of right forearm pain. Patient reports this morning she was walking her dog outside when she was attacked by another dog. She reports that she was wearing multiple layers of clothing and that the dog clinched on and bit her right forearm. Patient reports there was no puncture of the skin. She states that animal control is aware and a report has been made. She states there is no abrasion or puncture wound. Patient reports she has had right forearm pain since the incident. Patient has not taken any medication for her discomfort. - REPRODUCTIVE Reproductive: DENIES: : - MUSCULOSKELETAL Musculoskeletal: REPORTS: Extremity pain - right arm Past Medical History - General Information source: Patient - Social History Smoking Status: Never Smoker Frequency of alcohol use: None Drug Abuse: None Lives with: Family Family History: Arthritis, CAD, CVA, DM, Hyperlipidemia, Hypertension, Malignancy, Thyroid Disfunction Patient has suicidal ideation: No Patient has homicidal ideation: No - Past Medical History Cardiac Medical History: Reports: None Pulmonary Medical History: Reports: None EENT Medical History: Reports: None Neurological Medical History: Reports: Hx Migraine, Hx Seizures Endocrine Medical History: Reports: Hx Hypothyroidism Renal/ Medical History: Reports: None. Denies: Hx Kidney Stones, Hx Peritoneal Dialysis Malignancy Medical History: Reports: None GI Medical History: Reports: Hx Gastroesophageal Reflux Disease, Hx Irritable Bowel, Hx Ulcer Musculoskeletal Medical History: Reports None Skin Medical History: Reports Hx Eczema Psychiatric Medical History: Reports: Hx Depression Traumatic Medical History: Reports: None Infectious Medical History: Reports: None Past Surgical History: Reports: Hx Section - Immunizations Immunizations up to date: Yes Hx Diphtheria, Pertussis, Tetanus Vaccination: Yes Vertical Provider Document - CONSTITUTIONAL Agree With Documented VS: Yes Exam Limitations: No Limitations General Appearance: No Apparent Distress - INFECTION CONTROL TRAVEL OUTSIDE OF THE [place] IN LAST 30 DAYS: No - HEENT HEENT: Atraumatic, Normal ENT Exam, Normocephalic, PERRLA - NECK Neck: Normal Inspection - RESPIRATORY Respiratory: Breath Sounds Normal, No Respiratory Distress - CARDIOVASCULAR Cardiovascular: Regular Rate, Regular Rhythm - GI/ABDOMEN Gastrointestinal: Abdomen Soft, Abdomen Non-Tender, Normal Bowel Sounds - MUSCULOSKELETAL/EXTREMETIES Notes: Patient has tenderness with palpation to the dorsal aspect of the right forearm. There is no laceration, puncture wound or abrasion. No open wounds. No significant edema or ecchymosis. - NEURO Level of Consciousness: Awake, Alert, Appropriate Course - Re-evaluation Re-evalutation: 12/03/19 10:35 We will obtain an x-ray to make sure that the patient did not obtain a fracture dislocation from the bite of the animal. Patient does not require a Tdap or rabies vaccination as there was no break in the skin. Patient reports she did have multiple layers of clothing on. Animal control is aware per the patient. I did offer Tylenol and ibuprofen for pain. Patient reports she has chronic nausea and although she is not experiencing this at this time she does not want anything for her discomfort. 12/03/19 11:53 Heart rate significantly improved since arrival. Patient stable for discharge. Patient instructed that her x-ray was normal and that she has a deep tissue contusion. Ibuprofen given. Encouraged to ice and elevate. - Vital Signs Vital signs: Temp Pulse Resp BP Pulse Ox 98.1 F 120 H 20 111/66 95 12/03/19 09:48 12/03/19 09:48 12/03/19 09:48 12/03/19 09:48 12/03/19 09:48 Discharge - Discharge Clinical Impression: Right forearm injury Qualifiers: Encounter type: initial encounter Qualified Code(s): S59.911A - Unspecified injury of right forearm, initial encounter Condition: Stable Disposition: HOME, SELF-CARE Additional Instructions: *Today was seen in the emergency department for the chief complaint of dog bite. There is no break in the skin and you do not require any rabies vaccinations or tetanus. Your injury is due to a contusion which is a crushing of the deep tissues. This can be significantly painful. I am prescribing you 800 mg ibup rofens. This is an NSAID. Make sure you take this with food. Use ice packs to the area. Do expect some bruising and swelling. Please keep the arm elevated. Contusion Your injury has resulted in a contusion -- a crushing of the deep tissues. No injury to important structures was detected during the physician's exam. Contusions vary in the amount of pain they cause, and in the length of time required for healing. Typically, the area will become bruised, and will remain painful to touch for two or three weeks. However, most patients are back to working and playing within a few days. After the initial period of rest and cold-packs, your symptoms (together with the doctor's recommendations) will determine how rapidly you can get back to full activity. Usually this means "do what feels okay, but don't do things that hurt." If re-examination was recommended, it's important to follow up as instructed. Call the doctor or return any time if pain increases, if swelling becomes severe, if you develop numbness or weakness in an injured extremity, or if any other alarming symptoms occur. Prescriptions: Ibuprofen [Motrin 800 mg Tablet] 800 mg PO Q8H PRN #30 tab PRN Reason: Referrals: GAVIN GAN MD [Primary Care Provider] - Follow up as needed
--- NOTE | 2019-12-03 11:08 | RADIOLOGY REPORT (SQ) ---
EXAM DESCRIPTION: FOREARM RIGHT COMPLETED DATE/TIME: 12/03/2019 10:56 am REASON FOR STUDY: Right forearm pain, bit by dog COMPARISON: None. NUMBER OF VIEWS: Two views. TECHNIQUE: Two radiographic images acquired of the right forearm, including elbow and wrist in at le ast one projection. LIMITATIONS: None. FINDINGS: MINERALIZATION: Normal. BONES: No fracture dislocation. No periosteal reaction. SOFT TISSUES: No soft tissue swelling or radiopaque foreign body. OTHER: No other finding. IMPRESSION: No acute osseous abnormality of the right forearm. TECHNICAL DOCUMENTATION: JOB ID: [id number] 2010 [employer]- All Rights Reserved Reading location - IP/workstation name: [email or web address]
[2019-12-03 11:47] VITALS: BP 110/70
== END 2019-12-03 11:45 | disposition home or self-care (01) ==
LOC: ER 09:36
DX: S59.911A Unspecified injury of right forearm, initial encounter (principal); M79.631 Pain in right forearm; W54.0XXA Bitten by dog, initial encounter
CPT/HCPCS: 99283

== ENCOUNTER 2020-01-17 09:05 | Emergency (ER) | payer BC ==
[2020-01-17] MEDS ORDERED: ONDANSETRON HCL INJ/PF 4 MG/2 ML SDV IV ONE ×2 (09:23→11:12)
[2020-01-17] MEDS ORDERED: NORMAL SALINE 1000 ML 1,000 ML IV ONE (09:23)
--- NOTE | 2020-01-17 09:25 | ER Document Report ---
ED GI/ - General Chief Complaint: Abdominal Pain Stated Complaint: ABDOMINAL PAIN Time Seen by Provider: 01/17/20 09:12 Primary Care Provider: GAVIN GAN MD [Primary Care Provider] - Follow up as needed Notes: CHIEF COMPLAINT: Vomiting for 4 days HPI: 29-year-old female with history of cyclic vomiting, endometriosis presenting for recurrence of her cyclic vomiting. States she has been dry heaving over the last 4 days has been able to keep sips of water down intermittently is worried she is dehydrated. Complains of generalized abdominal soreness. No fever. Patient states that normally she takes Zofran 8 mg at home but was having difficulty keeping the medicine under her tongue because she was dry heaving. She was able to keep 8 mg of Zofran and at 4 AM this morning. Complains of continued nausea sensation. Normally follows with [facility] at [place] for her endometriosis ROS: See HPI - all other systems were reviewed and are otherwise negative Constitutional: no fever Eyes: no drainage, no blurred vision ENT: no runny nose, no sore throat Cardiovascular: no chest pain Resp: no SOB, no cough GI: + vomiting, no diarrhea, +, very anxious abdominal pain : no dysuria Integumentary: no rash Allergy: no hives Musculoskeletal: no extremity pain or swelling Neurological: no numbness/tingling, no weakness MEDICATIONS: I agree with the patient medications as charted by the RN. ALLERGIES: I agree with the allergies as charted by the RN. PAST MEDICAL HISTORY/PAST SURGICAL HISTORY: Reviewed and agree as charted by RN. SOCIAL HISTORY: Reviewed and agree as charted by RN. FAMILY HISTORY: No significant familial comorbid conditions directly related to patient complaint EXAM: Reviewed vital signs as charted by RN. CONSTITUTIONAL: Alert and oriented and responds appropriately to questions. Well-appearing; well-nourished HEAD: Normocephalic; atraumatic EYES: PERRL; Conjunctivae clear, sclerae non-icteric ENT: normal nose; no rhinorrhea; moist mucous membranes; pharynx without lesions noted, no uvula edema or deviation, no tonsillar hypertrophy, phonation normal NECK: Supple without meningismus; non-tender; no cervical lymphadenopathy, no masses CARD: RRR; no murmurs, no clicks, no rubs, no gallops; symmetric distal pulses RESP: Normal chest excursion without splinting or tachypnea; breath sounds clear and equal bilaterally; no wheezes, no rhonchi, no rales, pulse oximetry 99% on room air not hypoxic ABD/GI: Normal bowel sounds; non-distended; soft, mild generalized tenderness without focal abdominal pain on palpation , no rebound, no guarding; no palpable organomegaly or masses. BACK: The back appears normal and is non-tender to palpation, there is no CVA tenderness EXT: Normal ROM in all joints; non-tender to palpation; no cyanosis, no effusions, no edema SKIN: Normal color for age and race; warm; dry; good turgor; no acute lesions noted NEURO: Moves all extremities equally; Motor and sensory function intact PSYCH: The patient's mood and manner are anxious. Grooming and personal hygiene are appropriate. MDM: 29-year-old female with cyclic vomiting presenting for concerns for dehydration and continued vomiting over the last 4 days. States she has had this type of episode multiple times previously. She has no focal abdominal pain on exam. Will check screening labs, give IV fluids and antiemetics and reassess TRAVEL OUTSIDE OF THE [place] IN LAST 30 DAYS: No - Related Data Allergies/Adverse Reactions: haloperidol [From Haldol] Allergy (Verified 12/03/19 10:23) Past Medical History - Social History Smoking Status: Never Smoker Chew tobacco use (# tins/day): No Frequency of alcohol use: None Drug Abuse: None Family History: Arthritis, CAD, CVA, DM, Hyperlipidemia, Hypertension, Malignancy, Thyroid Disfunction Patient has suicidal ideation: No Patient has homicidal ideation: No Neurological Medical History: Reports: Hx Migraine, Hx Seizures Endocrine Medical History: Reports: Hx Hypothyroidism Renal/ Medical History: Denies: Hx Kidney Stones, Hx Peritoneal Dialysis GI Medical History: Reports: Hx Gastroesophageal Reflux Disease, Hx Irritable Leopoldo wel, Hx Ulcer Skin Medical History: Reports Hx Eczema Psychiatric Medical History: Reports: Hx Depression Past Surgical History: Reports: Hx Section - Immunizations Immunizations up to date: Yes Hx Diphtheria, Pertussis, Tetanus Vaccination: Yes Physical Exam - Vital signs Vitals: Temp Pulse Resp BP Pulse Ox 98.1 F 111 H 20 115/88 H 100 01/17/20 09:17 01/17/20 09:17 01/17/20 09:17 01/17/20 09:17 01/17/20 09:17 Course - Re-evaluation Re-evalutation: 01/17/20 10:55 Patient feels better after Zofran and IV fluids. She does appear to be dehydrated. Lab work otherwise unremarkable. She did have some ketones in the urine. We will orally challenge, reassess abdomen if not having any significant or focal pain will consider discharge with Phenergan suppositories given her issues taking oral antiemetics. No indication for imaging at this time 01/17/20 11:10 patient still with slight nausea, no vomiting. keeping fluids and crackers down. does not believe phenergan suppositories covered by insurance. Wants the Rx anyway and will try to fill until she can see her OB at [facility] - Vital Signs Vital signs: Temp Pulse Resp BP Pulse Ox 98.1 F 111 H 20 115/88 H 98 01/17/20 09:17 01/17/20 09:17 01/17/20 09:17 01/17/20 09:17 01/17/20 10:00 - Laboratory Result Diagrams: 01/17/20 09:30 01/17/20 09:30 Laboratory results interpreted by me: 01/17/20 01/17/20 01/17/20 09:30 09:30 09:30 Seg Neutrophils % 79.2 H Total Protein 8.4 H Urine Ketones 80 H Urine Blood SMALL H Discharge - Discharge Clinical Impression: Vomiting Qualifiers: Vomiting type: unspecified Vomiting Intractability: non-intractable Nausea presence: with nausea Qualified Code(s): R11.2 - Nausea with vomiting, unspecified Condition: Stable Disposition: HOME, SELF-CARE Instructions: Antinausea Medication ([facility]) Additional Instructions: You may continue Zofran or use the Phenergan suppositories for nausea. Follow up with your OBGYN for further evaluation and treatment call for appt. Return for recurrent vomiting or focal abdominal pain. You should use the Xanga lise on your phone to find the best malone for your medications Prescriptions: Promethazine HCl [Phenergan 25 mg Supp.rect] 1 supp MA Q6H #12 supp.rect Referrals: GAVIN GAN MD [Primary Care Provider] - Follow up as needed
[2020-01-17 09:50] LABS: ABSOLUTE LYMPHOCYTES (AUTO) 1.4 10^3/uL (0.5-4.7); ABSOLUTE MONOCYTES (AUTO) 0.4 10^3/uL (0.1-1.4); ABSOLUTE NEUT (AUTO) 7.2 10^3/uL (1.7-8.2); BASOPHILS % (AUTO) 0.4 % (0-2); EOSINOPHILS % (AUTO) 0.2 % (0-6); HEMATOCRIT 43.7 % (36.0-47.0); HEMOGLOBIN 15.3 g/dL (12.0-15.5); LYMPHOCYTES % (AUTO) 15.7 % (13-45); MEAN CORPUSCULAR HEMOGLOBIN 29.9 pg (27.0-33.4); MEAN CORPUSCULAR VOLUME 85 fl (80-97); MONOCYTES % (AUTO) 4.5 % (3-13); PLATELET COUNT 440 10^3/uL (150-450); RED BLOOD COUNT 5.12 10^6/uL (3.72-5.28); RED CELL DISTRIBUTION WIDTH 13.2 % (11.5-14.0); SEGMENTED NEUTROPHILS % (AUTO) 79.2 % (42-78); TOTAL CELLS COUNTED % (AUTO) 100 %; WHITE BLOOD COUNT 9.1 10^3/uL (4.0-10.5)
[2020-01-17 09:52] LABS: APPEARANCE,URINE SLIGHTLY-CLOUDY; BILIRUBIN,URINE NEGATIVE (NEGATIVE); COLOR,URINE YELLOW; GLUCOSE, URINE NEGATIVE (NEGATIVE); KETONES,URINE 80 mg/dL (NEGATIVE); LEUKOCYTE ESTERASE,URINE NEGATIVE (NEGATIVE); NITRITE,URINE NEGATIVE (NEGATIVE); PROTEIN,URINE NEGATIVE (NEGATIVE); URINE SPECIFIC GRAVITY 1.014; UROBILINOGEN,URINE NEGATIVE mg/dL (<2.0)
[2020-01-17 09:59] LABS: ALBUMIN 4.8 g/dL (3.5-5.0); ALKALINE PHOSPHATASE 75 U/L (38-126); ANION GAP 11 (5-19); ASPARTATE AMINO TRANSFERASE 22 U/L (14-36); BILIRUBIN,TOTAL 0.8 mg/dL (0.2-1.3); BLOOD UREA NITROGEN 12 mg/dL (7-20); CALCIUM 10.1 mg/dL (8.4-10.2); CARBON DIOXIDE 23 mmol/L (22-30); CHLORIDE 104 mmol/L (98-107); GLUCOSE 98 mg/dL (75-110); POTASSIUM 4.3 mmol/L (3.6-5.0); TOTAL PROTEIN 8.4 g/dL (6.3-8.2)
[2020-01-17 11:36] VITALS: BP 116/72
== END 2020-01-17 11:36 | disposition home or self-care (01) ==
LOC: ER 09:05
DX: R11.15 Cyclical vomiting syndrome unrelated to migraine (principal); R10.817 Generalized abdominal tenderness; R82.4 Acetonuria; Z88.8 Allergy status to other drugs, medicaments and biological substances; Z87.19 Personal history of other diseases of the digestive system
CPT/HCPCS: 99284; 96361; 96374; 36415; 85025; 81025; 80053; 81001; J2405; J7030

== ENCOUNTER 2020-02-17 14:32 | Emergency (ER) | payer BC ==
--- NOTE | 2020-02-17 15:04 | ER Document Report ---
ED Medical Screen (RME) - General Stated Complaint: SEVERE ABDOMINAL PAIN/CRAMPING Time Seen by Provider: 02/17/20 14:59 Primary Care Provider: GAVIN GAN MD [Primary Care Provider] - Follow up as needed Mode of Arrival: Wheelchair Information source: Patient Notes: 29-year-old female patient with chronic abdominal pain presenting to the emergency department with worsening abdominal pain. Patient reports persistent nausea. She states these problems are chronic for her however the pain is worse today and she describes the pain as a severe cramping in the upper and lower abdomen.. She states she has seen multiple doctors for this and no one has been able to come up with a diagnosis. She does have a diagnosis of endometriosis for which she had surgery for. She denies any fevers or diarrhea. Last normal bowel movement was yesterday. Mild tenderness with palpation to the generalized abdomen. I have greeted and performed a rapid initial assessment of this patient. A comprehensive ED assessment and evaluation of the patient, analysis of test results and completion of the medical decision making process will be conducted by additional ED providers. I have specifically instructed the patient or family members with the patient to immediately return to any nursing staff should anything change in the patient's condition or with their chief complaint. TRAVEL OUTSIDE OF THE [place] IN LAST 30 DAYS: No - Related Data Allergies/Adverse Reactions: haloperidol [From Haldol] Allergy (Verified 12/03/19 10:23) Past Medical History Neurological Medical History: Reports: Hx Migraine, Hx Seizures Endocrine Medical History: Reports: Hx Hypothyroidism Renal/ Medical History: Denies: Hx Kidney Stones, Hx Peritoneal Dialysis GI Medical History: Reports: Hx Gastroesophageal Reflux Disease, Hx Irritable Bowel, Hx Ulcer Skin Medical History: Reports Hx Eczema Psychiatric Medical History: Reports: Hx Depression Past Surgical History: Reports: Hx Section - Immunizations Immunizations up to date: Yes Hx Diphtheria, Pertussis, Tetanus Vaccination: Yes Physical Exam - Vital signs Vitals: Temp Pulse Resp BP Pulse Ox 98.1 F 108 H 18 107/77 99 02/17/20 14:38 02/17/20 14:38 02/17/20 14:38 02/17/20 14:38 02/17/20 14:38 Course - Vital Signs Vital signs: Temp Pulse Resp BP Pulse Ox 98.1 F 108 H 18 107/77 99 02/17/20 14:38 02/17/20 14:38 02/17/20 14:38 02/17/20 14:38 02/17/20 14:38 Doctor's Discharge - Discharge Referrals: GAVIN GAN MD [Primary Care Provider] - Follow up as needed
[2020-02-17 15:22] LABS: ABSOLUTE LYMPHOCYTES (AUTO) 1.1 10^3/uL (0.5-4.7); ABSOLUTE MONOCYTES (AUTO) 0.3 10^3/uL (0.1-1.4); ABSOLUTE NEUT (AUTO) 5.8 10^3/uL (1.7-8.2); BASOPHILS % (AUTO) 0.3 % (0-2); EOSINOPHILS % (AUTO) 0.1 % (0-6); HEMATOCRIT 41.6 % (36.0-47.0); HEMOGLOBIN 14.4 g/dL (12.0-15.5); LYMPHOCYTES % (AUTO) 15.2 % (13-45); MEAN CORPUSCULAR HEMOGLOBIN 29.5 pg (27.0-33.4); MEAN CORPUSCULAR HGB CONC 34.5 g/dL (32.0-36.0); MEAN CORPUSCULAR VOLUME 85 fl (80-97); MONOCYTES % (AUTO) 3.6 % (3-13); PLATELET COUNT 447 10^3/uL (150-450); RED BLOOD COUNT 4.87 10^6/uL (3.72-5.28); RED CELL DISTRIBUTION WIDTH 13.2 % (11.5-14.0); SEGMENTED NEUTROPHILS % (AUTO) 80.8 % (42-78); TOTAL CELLS COUNTED % (AUTO) 100 %; WHITE BLOOD COUNT 7.2 10^3/uL (4.0-10.5)
[2020-02-17 15:47] LABS: ALBUMIN 4.7 g/dL (3.5-5.0); ALKALINE PHOSPHATASE 63 U/L (38-126); ANION GAP 9 (5-19); ASPARTATE AMINO TRANSFERASE 18 U/L (14-36); BILIRUBIN,TOTAL 0.6 mg/dL (0.2-1.3); BLOOD UREA NITROGEN 5 mg/dL (7-20); CALCIUM 9.9 mg/dL (8.4-10.2); CARBON DIOXIDE 25 mmol/L (22-30); CHLORIDE 106 mmol/L (98-107); GLUCOSE 110 mg/dL (75-110); POTASSIUM 4.1 mmol/L (3.6-5.0)
[2020-02-17] MEDS ORDERED: ONDANSETRON HCL INJ/PF 4 MG/2 ML SDV IV ONE (16:28)
[2020-02-17] MEDS ORDERED: RINGERS SOLUTION,LACTATED 1,000 ML IV ONE (16:28)
[2020-02-17 16:38] LABS: APPEARANCE,URINE SLIGHTLY-CLOUDY; BILIRUBIN,URINE NEGATIVE (NEGATIVE); COLOR,URINE YELLOW; GLUCOSE, URINE NEGATIVE (NEGATIVE); KETONES,URINE NEGATIVE (NEGATIVE); LEUKOCYTE ESTERASE,URINE NEGATIVE (NEGATIVE); NITRITE,URINE NEGATIVE (NEGATIVE); PROTEIN,URINE NEGATIVE (NEGATIVE); URINE SPECIFIC GRAVITY 1.017; UROBILINOGEN,URINE NEGATIVE mg/dL (<2.0)
--- NOTE | 2020-02-17 16:58 | ER Document Report ---
ED GI/ - General Chief Complaint: Abdominal Cramping Stated Complaint: SEVERE ABDOMINAL PAIN/CRAMPING Time Seen by Provider: 02/17/20 14:59 Primary Care Provider: GAVIN GAN MD [Primary Care Provider] - Follow up as needed Mode of Arrival: Wheelchair Information source: Patient Notes: 29-year-old female past medical history significant for reflux, endometriosis, chronic abdominal pain, cyclic vomiting presents to the emergency room today complaining she is unable to tolerate p.o. and having worsening cramping. She takes Zofran at home which she states usually works however today it did not seem to be helpful. Patient states she is followed by an [facility]PR[facility] in [place] and is scheduled for hysterectomy on March 03. Denies any fevers, no vaginal discharge, no vaginal bleeding, rates her pain at a 4 out of 10. TRAVEL OUTSIDE OF THE [place] IN LAST 30 DAYS: No - Related Data Allergies/Adverse Reactions: haloperidol [From Haldol] Allergy (Verified 02/17/20 15:03) Past Medical History - General Information source: Patient - Social History Smoking Status: Never Smoker Chew tobacco use (# tins/day): No Frequency of alcohol use: None Drug Abuse: None Family History: Arthritis, CAD, CVA, DM, Hyperlipidemia, Hypertension, Malignancy, Thyroid Disfunction Patient has homicidal ideation: No Neurological Medical History: Reports: Hx Migraine, Hx Seizures Endocrine Medical History: Reports: Hx Hypothyroidism Renal/ Medical History: Denies: Hx Kidney Stones, Hx Peritoneal Dialysis GI Medical History: Reports: Hx Gastroesophageal Reflux Disease, Hx Irritable Bowel, Hx Ulcer Skin Medical History: Reports Hx Eczema Psychiatric Medical History: Reports: Hx Depression Past Surgical History: Reports: Hx Section - Immunizations Immunizations up to date: Yes Hx Diphtheria, Pertussis, Tetanus Vaccination: Yes Review of Systems - Review of Systems Constitutional: No symptoms reported Cardiovascular: No symptoms reported Respiratory: No symptoms reported Gastrointestinal: Abdominal pain, Nausea, Vomiting Genitourinary: No symptoms reported Skin: No symptoms reported Neurological/Psychological: No symptoms reported -: Yes All other systems reviewed and negative Physical Exam - Vital signs Vitals: Temp Pulse Resp BP Pulse Ox 98.1 F 108 H 18 107/77 99 02/17/20 14:38 02/17/20 14:38 02/17/20 14:38 02/17/20 14:38 02/17/20 14:38 - General General appearance: Appears well, Alert In distress: Mild - HEENT Head: Normocephalic, Atraumatic Eyes: Normal Pupils: PERRL - Respiratory Respiratory status: No respiratory distress Chest status: Nontender Breath sounds: Normal Chest palpation: Normal - Cardiovascular Rhythm: Regular Heart sounds: Normal auscultation Murmur: No - Abdominal Inspection: Normal Distension: No distension Bowel sounds: Normal Tenderness: Nontender. No: McBurney's point, Kirk's sign, Guarding Organomegaly: No organomegaly - Back Back: Normal, Nontender. No: CVA tenderness - Neurological Neuro grossly intact: Yes Cognition: Normal Orientation: AAOx4 Loretta Coma Scale Eye Opening: Spontaneous [place] Coma Scale Verbal: Oriented Loretta Coma Scale Motor: Obeys Commands [place] Coma Scale Total: 15 Speech: Normal Motor strength normal: LUE, RUE, LLE, RLE Sensory: Normal - Skin Skin Temperature: Warm Skin Moisture: Dry Skin Color: Normal Course - Re-evaluation Re-evalutation: 02/17/20 18:02 Patient is resting comfortably decreased pain. Pain-free on exam. Able to tolerate p.o. fluids. Reviewed all lab results with patient. She is to follow- up outpatient with her [facility]PR[facility]ICE this week. Continue with her Zofran. She was given strict return to emergency room guidelines. Return for any new or worsening symptoms. All questions were answered. Patient verbalized understanding and agrees with plan of care. 02/17/20 18:21 - Vital Signs Vital signs: Temp Pulse Resp BP Pulse Ox 98.1 F 108 H 18 107/77 99 02/17/20 15:00 02/17/20 14:38 02/17/20 14:38 02/17/20 14:38 02/17/20 14:38 - Laboratory Result Diagrams: 02/17/20 15:05 02/17/20 15:05 Laboratory results interpreted by me: 02/17/20 02/17/20 15:05 15:05 Seg Neutrophils % 80.8 H BUN 5 L Discharge - Discharge Clinical Impression: Chronic abdominal pain Nausea & vomiting Qualifiers: Vomiting type: unspecified Vomiting Intractability: non-intractable Qualified Code(s): R11.2 - Nausea with vomiting, unspecified Condition: Stable Disposition: HOME, SELF-CARE Instructions: Abdominal Pain ([facility]), Antinausea Medication ([facility]), Intravenous (IV) Fluids ([facility]), Vomiting ([facility]) Additional Instructions: Continue with your current home medications, follow-up with your [facility] APPR[facility]ICE this week. Return for any new or worsening symptoms. Referrals: GAVIN GAN MD [Primary Care Provider] - Follow up as needed
[2020-02-17] MEDS ORDERED: KETOROLAC TROMETHAMINE INJ/PF 30 MG/1 ML SDV IV ONE (17:20)
[2020-02-17 18:36] VITALS: BP 115/77
== END 2020-02-17 18:32 | disposition home or self-care (01) ==
LOC: ER 14:32
DX: R10.9 Unspecified abdominal pain (principal); G89.29 Other chronic pain; R11.2 Nausea with vomiting, unspecified; R63.0 Anorexia; K21.9 Gastro-esophageal reflux disease without esophagitis; N80.9 Endometriosis, unspecified; Z79.899 Other long term (current) drug therapy
CPT/HCPCS: 99284; 96361; 96374; 96375; 36415; 83690; 85025; 81025; 80053; 81001; J1885; J2405; J7120

== ENCOUNTER 2020-02-21 10:40 | Emergency (ER) | payer BC ==
[2020-02-21 11:09] LABS: ABSOLUTE LYMPHOCYTES (AUTO) 1.4 10^3/uL (0.5-4.7); ABSOLUTE MONOCYTES (AUTO) 0.3 10^3/uL (0.1-1.4); BASOPHILS % (AUTO) 0.5 % (0-2); EOSINOPHILS % (AUTO) 0.3 % (0-6); HEMATOCRIT 46.2 % (36.0-47.0); HEMOGLOBIN 15.5 g/dL (12.0-15.5); LYMPHOCYTES % (AUTO) 20.6 % (13-45); MEAN CORPUSCULAR HEMOGLOBIN 28.9 pg (27.0-33.4); MEAN CORPUSCULAR HGB CONC 33.5 g/dL (32.0-36.0); MEAN CORPUSCULAR VOLUME 86 fl (80-97); MONOCYTES % (AUTO) 4.8 % (3-13); PLATELET COUNT 497 10^3/uL (150-450); RED BLOOD COUNT 5.35 10^6/uL (3.72-5.28); RED CELL DISTRIBUTION WIDTH 13.1 % (11.5-14.0); SEGMENTED NEUTROPHILS % (AUTO) 73.8 % (42-78); TOTAL CELLS COUNTED % (AUTO) 100 %; WHITE BLOOD COUNT 6.8 10^3/uL (4.0-10.5)
[2020-02-21] MEDS ORDERED: KETOROLAC TROMETHAMINE INJ/PF 30 MG/1 ML SDV IV ONE (11:14)
[2020-02-21] MEDS ORDERED: MIDAZOLAM 2 MG/2 ML INJ IV ONE (11:14)
[2020-02-21] MEDS ORDERED: DIPHENHYDRAMINE HCL 50 MG/ML VIAL IV ONE (11:14)
[2020-02-21] MEDS ORDERED: METOCLOPRAMIDE HCL INJ/PF 10 MG/2 ML SDV IV ONE (11:14)
--- NOTE | 2020-02-21 11:15 | ER Document Report ---
ED General - General Chief Complaint: Abdominal Pain Stated Complaint: ABDOMINAL PAIN Primary Care Provider: GAVIN GAN MD [Primary Care Provider] - Follow up as needed Notes: 21-year-old female presents with abdominal pain, cramping and nausea vomiting. Severe for a few days. She has a long history of endometriosis and is scheduled for hysterectomy in about 2 weeks at [facility]. She takes Toradol and has an aversion to controlled substances because of PTSD. She was seen here a few days ago for the same had some labs which were normal. Her diarrhea has resolved and she has no fever. This feels like her normal flareup of endometriosis. TRAVEL OUTSIDE OF THE [place] IN LAST 30 DAYS: No - Related Data Allergies/Adverse Reactions: haloperidol [From Haldol] Allergy (Verified 02/21/20 10:54) Home Medications: nexium, bcp, zofran, prn toradol Past Medical History - Social History Smoking Status: Never Smoker Chew tobacco use (# tins/day): No Frequency of alcohol use: None Drug Abuse: None Family History: Arthritis, CAD, CVA, DM, Hyperlipidemia, Hypertension, Laura gnancy, Thyroid Disfunction Patient has homicidal ideation: No Neurological Medical History: Reports: Hx Migraine, Hx Seizures Endocrine Medical History: Reports: Hx Hypothyroidism Renal/ Medical History: Denies: Hx Kidney Stones, Hx Peritoneal Dialysis GI Medical History: Reports: Hx Gastroesophageal Reflux Disease, Hx Irritable Bowel, Hx Ulcer Skin Medical History: Reports Hx Eczema Psychiatric Medical History: Reports: Hx Depression Past Surgical History: Reports: Hx Section, Hx Gynecologic Surgery - endometriosis - Immunizations Immunizations up to date: Yes Hx Diphtheria, Pertussis, Tetanus Vaccination: Yes Review of Systems - Review of Systems Notes: REVIEW OF SYSTEMS GEN: Denies fever, chills, weight loss ENT: Denies sore throat, nasal discharge, ear pain EYES: Denies blurry vision, eye pain, discharge CV: Denies chest pain, palpitations, edema RESP: Denies cough, shortness of breath, wheezing GI: See HPI MSK: Denies joint pain/swelling, edema, SKIN: Denies rash, skin lesions LYMPH: Denies swollen glands/lymph nodes NEURO: Denies headache, focal weakness or numbness, dizziness PSYCH: PTSD anxiety PHYSICAL EXAMINATION General: Full and tremulous Head: Atraumatic, normocephalic ENT: Mouth normal, oropharynx moist, no exudates or tonsillar enlargement Eyes: Conjunctiva normal, pupils equal, lids normal Neck: No JVD, supple, no guarding CVS: Normal rate, regular rhythm, no murmurs Resp: No resp distress, equal and normal breath sounds bilaterally GI: Nondistended, soft, no tenderness to palpation, no rebound or guarding Ext: No deformities, no edema, normal range of motion in upper and lower ext Back: No CVA or midline TTP Skin: No rash, warm Lymphatic: No lymphadeopathy noted Neuro: Awake, alert. Face symmetric. GCS 15. Psychiatric: Very anxious Physical Exam - Vital signs Vitals: Temp Pulse Resp BP Pulse Ox 98.4 F 104 H 22 H 137/87 H 98 02/21/20 10:43 02/21/20 10:43 02/21/20 10:43 02/21/20 10:43 02/21/20 10:43 Course - Re-evaluation Re-evalutation: 02/21/20 11:20 29-year-old female with severe Cruz this and anxiety presents with same. I do not think imaging will yield any new diagnosis today but will check basic labs. We long discussion regarding treatment options because she is averse to narcotics and we settled on a cocktail of medications that I think will relieve her symptoms without so much sedation. She was given medicines. She felt much better. Her labs are normal. We discussed imaging which I think and be deferred. She will be discharged home with suppositories and follow-u I have discussed with the patient there likely diagnosis, aftercare plan, follow-up plans and my usual and customary return precautions. They verbalized understanding of this. 02/26/20 13:40 - Vital Signs Vital signs: Temp Pulse Resp BP Pulse Ox 98.4 F 104 H 20 113/83 100 02/21/20 10:54 02/21/20 10:43 02/21/20 13:01 02/21/20 13:01 02/21/20 13:01 - Laboratory Result Diagrams: 02/21/20 10:58 02/21/20 10:58 Laboratory results interpreted by me: 02/21/20 02/21/20 10:58 10:58 RBC 5.35 H Plt Count 497 H Calcium 10.4 H Total Protein 9.0 H Albumin 5.3 H Discharge - Discharge Clinical Impression: Endometriosis Condition: Good Disposition: HOME, SELF-CARE Instructions: Abdominal Pain ([facility]) Prescriptions: Promethazine HCl [Phenergan 25 mg Supp.rect] 1 supp NV Q6H #12 supp.rect Referrals: GAVIN GAN MD [Primary Care Provider] - Follow up as needed
[2020-02-21 11:27] LABS: ALBUMIN 5.3 g/dL (3.5-5.0); ALKALINE PHOSPHATASE 74 U/L (38-126); ANION GAP 13 (5-19); ASPARTATE AMINO TRANSFERASE 23 U/L (14-36); BLOOD UREA NITROGEN 10 mg/dL (7-20); CALCIUM 10.4 mg/dL (8.4-10.2); CARBON DIOXIDE 24 mmol/L (22-30); CHLORIDE 102 mmol/L (98-107); GLUCOSE 102 mg/dL (75-110); POTASSIUM 4.2 mmol/L (3.6-5.0)
[2020-02-21] MEDS ORDERED: ONDANSETRON HCL INJ/PF 4 MG/2 ML SDV IV ONE (11:54)
[2020-02-21 13:06] VITALS: BP 113/83
== END 2020-02-21 13:09 | disposition home or self-care (01) ==
LOC: ER 10:40
DX: N80.9 Endometriosis, unspecified (principal); R10.9 Unspecified abdominal pain; R11.2 Nausea with vomiting, unspecified; F43.10 Post-traumatic stress disorder, unspecified; R19.7 Diarrhea, unspecified; F41.9 Anxiety disorder, unspecified; Z88.8 Allergy status to other drugs, medicaments and biological substances; Z79.899 Other long term (current) drug therapy
CPT/HCPCS: 99284; 96374; 96375; 36415; 85025; 80076; 80048; J2250; J1885; J2405

== ENCOUNTER 2020-03-14 23:01 | Emergency (ER) | payer BC ==
[2020-03-14] MEDS ORDERED: NORMAL SALINE 1000 ML 1,000 ML IV PRN (23:29)
--- NOTE | 2020-03-14 23:29 | ER Document Report ---
ED Medical Screen (RME) - General Chief Complaint: Low Blood Pressure Stated Complaint: DIZZINESS,LOW BLOOD PRESSURE Time Seen by Provider: 03/14/20 23:28 Primary Care Provider: GAVIN GAN MD [Primary Care Provider] - Follow up as needed Information source: Patient Notes: This 29-year-old female presents to the emergency room today after having had a partial hysterectomy on March 03 she apparently had some follow-up today with a prolapsed hemorrhoid her surgical scars seem like they are healing well her mother states that the patient has been kind of blacking out intermittently patient states she is having intermittent shortness of breath and she has had some episodes of low blood pressure at home. TRAVEL OUTSIDE OF THE [place] IN LAST 30 DAYS: No - Related Data Allergies/Adverse Reactions: haloperidol [From Haldol] Allergy (Verified 02/21/20 10:54) Past Medical History Neurological Medical History: Reports: Hx Migraine, Hx Seizures Endocrine Medical History: Reports: Hx Hypothyroidism Renal/ Medical History: Denies: Hx Kidney Stones, Hx Peritoneal Dialysis GI Medical History: Reports: Hx Gastroesophageal Reflux Disease, Hx Irritable Bowel, Hx Ulcer Skin Medical History: Reports Hx Eczema Psychiatric Medical History: Reports: Hx Depression Past Surgical History: Reports: Hx Section, Hx Gynecologic Surgery - endometriosis - Immunizations Immunizations up to date: Yes Hx Diphtheria, Pertussis, Tetanus Vaccination: Yes Physical Exam - Vital signs Vitals: Temp Pulse Resp BP Pulse Ox 98.7 F 82 16 123/81 99 03/14/20 23:06 03/14/20 23:06 03/14/20 23:06 03/14/20 23:06 03/14/20 23:06 Course - Vital Signs Vital signs: Temp Pulse Resp BP Pulse Ox 98.7 F 82 16 123/81 99 03/14/20 23:06 03/14/20 23:06 03/14/20 23:06 03/14/20 23:06 03/14/20 23:06 Doctor's Discharge - Discharge Referrals: GAVIN GAN MD [Primary Care Provider] - Follow up as needed
[2020-03-15 00:23] LABS: ABSOLUTE BASOPHILS # (AUTO) 0.1 10^3/uL (0.0-0.2); ABSOLUTE EOSINOPHILS # (AUTO) 0.2 10^3/uL (0.0-0.6); ABSOLUTE LYMPHOCYTES (AUTO) 3.2 10^3/uL (0.5-4.7); ABSOLUTE MONOCYTES (AUTO) 0.7 10^3/uL (0.1-1.4); ABSOLUTE NEUT (AUTO) 4.5 10^3/uL (1.7-8.2); BASOPHILS % (AUTO) 0.6 % (0-2); EOSINOPHILS % (AUTO) 1.8 % (0-6); HEMOGLOBIN 14.1 g/dL (12.0-15.5); LYMPHOCYTES % (AUTO) 37.6 % (13-45); MEAN CORPUSCULAR HEMOGLOBIN 29.5 pg (27.0-33.4); MEAN CORPUSCULAR HGB CONC 34.4 g/dL (32.0-36.0); MEAN CORPUSCULAR VOLUME 86 fl (80-97); MONOCYTES % (AUTO) 8.1 % (3-13); PLATELET COUNT 480 10^3/uL (150-450); RED BLOOD COUNT 4.78 10^6/uL (3.72-5.28); RED CELL DISTRIBUTION WIDTH 13.1 % (11.5-14.0); SEGMENTED NEUTROPHILS % (AUTO) 51.9 % (42-78); TOTAL CELLS COUNTED % (AUTO) 100 %; WHITE BLOOD COUNT 8.6 10^3/uL (4.0-10.5)
[2020-03-15 00:27] LABS: APPEARANCE,URINE CLEAR; BILIRUBIN,URINE NEGATIVE (NEGATIVE); COLOR,URINE STRAW; GLUCOSE, URINE NEGATIVE (NEGATIVE); KETONES,URINE NEGATIVE (NEGATIVE); LEUKOCYTE ESTERASE,URINE NEGATIVE (NEGATIVE); NITRITE,URINE NEGATIVE (NEGATIVE); PROTEIN,URINE NEGATIVE (NEGATIVE); URINE SPECIFIC GRAVITY 1.006; UROBILINOGEN,URINE NEGATIVE mg/dL (<2.0)
[2020-03-15 00:40] LABS: ALBUMIN 4.5 g/dL (3.5-5.0); ALKALINE PHOSPHATASE 63 U/L (38-126); ANION GAP 9 (5-19); ASPARTATE AMINO TRANSFERASE 18 U/L (14-36); BILIRUBIN,TOTAL 0.3 mg/dL (0.2-1.3); BLOOD UREA NITROGEN 8 mg/dL (7-20); CALCIUM 9.9 mg/dL (8.4-10.2); CARBON DIOXIDE 25 mmol/L (22-30); CHLORIDE 103 mmol/L (98-107); GLUCOSE 103 mg/dL (75-110); POTASSIUM 4.1 mmol/L (3.6-5.0); TOTAL PROTEIN 7.6 g/dL (6.3-8.2)
--- NOTE | 2020-03-15 01:15 | ER Document Report ---
ED General - General Chief Complaint: Low Blood Pressure Stated Complaint: DIZZINESS,LOW BLOOD PRESSURE Time Seen by Provider: 03/14/20 23:28 Primary Care Provider: GAVIN GAN MD [Primary Care Provider] - Follow up as needed TRAVEL OUTSIDE OF THE [place] IN LAST 30 DAYS: No - HPI Notes: Chief complaint: Near syncopal episodes HPI: 29-year-old female with history of endometriosis who underwent laparoscopic hysterectomy at [facility] on March 03 now presenting with recurrent episodes of lightheadedness and near syncope over the last several days. She denies chest pain. She denies shortness of breath. She denies palpitations. She denies fever or chills. She denies dysuria. She denies any abnormal vaginal bleeding. Patient reports that she was started on Xanax as needed by her doctors at [facility] before they did her surgery. She is continued to take that intermittently. This is her only current medication other than [id number] Tylenol. - Related Data Allergies/Adverse Reactions: haloperidol [From Haldol] Allergy (Verified 02/21/20 10:54) Home Medications: xanax qday Past Medical History - General Information source: Patient - Social History Smoking Status: Never Smoker Frequency of alcohol use: None Drug Abuse: None Family History: Arthritis, CAD, CVA, DM, Hyperlipidemia, Hypertension, Malignancy, Thyroid Disfunction Patient has homicidal ideation: No Neurological Medical History: Reports: Hx Migraine, Hx Seizures Endocrine Medical History: Reports: Hx Hypothyroidism Renal/ Medical History: Denies: Hx Kidney Stones, Hx Peritoneal Dialysis GI Medical History: Reports: Hx Gastroesophageal Reflux Disease, Hx Irritable Bowel, Hx Ulcer Skin Medical History: Reports Hx Eczema Psychiatric Medical History: Reports: Hx Depression Past Surgical History: Reports: Hx Section, Hx Gynecologic Surgery - endometriosis - Immunizations Immunizations up to date: Yes Hx Diphtheria, Pertussis, Tetanus Vaccination: Yes Review of Systems - Review of Systems Notes: Constitutional: Negative for fever. HENT: Negative for sore throat. Eyes: Negative for visual changes. Cardiovascular: Negative for chest pain. Respiratory: Negative for shortness of breath. Gastrointestinal: Negative for abdominal pain, vomiting or diarrhea. Genitourinary: Negative for dysuria. Musculoskeletal: Negative for back pain. Skin: Negative for rash. Neurological: No focal neurologic symptoms. 10 point ROS negative except as marked above and in HPI. Physical Exam - Vital signs Vitals: Temp Pulse Resp BP Pulse Ox 98.7 F 82 16 123/81 99 03/14/20 23:06 03/14/20 23:06 03/14/20 23:06 03/14/20 23:06 03/14/20 23:06 - Notes Notes: GENERAL: Female patient approximately stated age appearing in no acute distress. SKIN: Good turgor no rashes. HEAD: Normocephalic atraumatic. EYES: PERRLA. EOMI. Conjunctivae and sclerae clear. EARS: CANALS AND TMS CLEAR. NOSE: CLEAR. MOUTH: Moist mucosa. Good dentition. No stridor or edema. No drooling. NECK: Supple. No masses or thyromegaly. No adenopathy. Carotids 2+ without bruits. No JVD. BACK: Symmetrical without tenderness. CHEST: Respirations unlabored. Breath sounds clear and symmetrical. HEART: Regular rhythm. No murmur gallop or rub. ABDOMEN: Soft nontender without masses, organomegaly or rebound. Bowel sounds normally active. No bruits. GENITALIA: Deferred. EXTREMITIES: No edema. No calf tenderness. Cap refill less than 1.5 seconds. Dorsalis pedis and posterior tibial pulses 3+ and symmetrical. NEUROLOGICAL: GCS 15. Alert and oriented x3. Normal gait. Fluent speech. Cranial nerves II through XII intact. Sensorimotor and cerebellar normal. Normal tone. PSYCHIATRIC: Appropriate affect. Course - Re-evaluation Re-evalutation: 03/15/20 02:33 Vital signs are stable here. Patient is afebrile. Hemoglobin and white count are normal. Chemistry profile is unremarkable. Urinalysis is unremarkable. Twelve-lead EKG was normal. Physician physician assistant certified who saw the patient at triage ordered a CT of the chest with contrast as opposed to a CT angiogram. The radiologist read this study is negative for any consolidation or other gross abnormality. I did not wish to expose this patient to another dose of contrast or high-dose radiation. She has no other findings to strongly suggest pulmonary embolus and I did go back and request a d-dimer which is normal. I feel relatively comfortable sending her home at this time and of course advised her to return here if she has new or worsening symptoms. Also suggested that she discontinue Xanax as this may be responsible for symptoms she is currently experiencing. Recommend follow-up with PMD within the next 2 to 3 days for recheck. Findings, clinical impression and plan of treatment have been discussed with patient/family. Understanding of current findings and recommendations has been acknowledged by them and there is agreement regarding disposition and follow-up. 03/15/20 02:36 - Vital Signs Vital signs: Temp Pulse Resp BP Pulse Ox 98.7 F 82 21 H 118/79 99 03/14/20 23:25 03/14/20 23:06 03/15/20 02:00 03/15/20 01:01 03/15/20 02:00 - Laboratory Result Diagrams: 03/15/20 00:12 03/15/20 00:12 Laboratory results interpreted by me: 03/15/20 03/15/20 00:12 00:12 Plt Count 480 H Sodium 136.9 L - EKG Interpretation by Me Additional EKG results interpreted by me: 03/15/20 01:14 Twelve-lead EKG from 005 8 hours reviewed by me contemporaneously demonstrating sinus bradycardia with a rate of 58. Intervals are normal. QRS axis is +2 degrees. There are no acute ST/T wave changes. There is no old EKG available for comparison. Indication for current study: Presyncope. Discharge - Discharge Clinical Impression: Pre-syncope Condition: Stable Disposition: HOME, SELF-CARE Additional Instructions: Discontinue the sedative medication as discussed. Follow-up with your doctor next 2 to 3 days. Return here as needed for new or worsening symptoms: Shortness of breath Pain that is worsening or unimproved Uncontrolled vomiting High fever or shaking chills Overall worsening Referrals: GAVIN GAN MD [Primary Care Provider] - Follow up as needed
[2020-03-15 01:23] VITALS: BP 118/79
--- NOTE | 2020-03-15 01:33 | RADIOLOGY REPORT (SQ) ---
CT CHEST WITH INTRAVENOUS CONTRAST: 03/15/2020 12:31 AM CDT HISTORY: 29-year old patient with dyspnea. TECHNIQUE: Postcontrast CT through the chest was performed. Sagittal and coronal reconstructed images were also obtained and examined. This exam was performed according to our departmental dose-optimization program, which includes automated exposure control, adjustment of the mA and/or KV according to the patient's size and/or use of iterative reconstruction technique. COMPARISON: None available FINDINGS: The heart size is normal in size. No pericardial effusion is seen. No significant mediastinal, supraclavicular, or axillary lymphadenopathy is seen. The thoracic aorta is within normal limits of size. The main pulmonary artery is within normal limits of size. No focal filling defect is seen within the visualized pulmonary arteries. There is no evidence of a focal consolidative airspace opacity. There is no evidence of pleural effusions or a pneumothorax. The bones demonstrate no suspicious lytic or blastic lesion. IMPRESSION: No acute consolidative airspace opacity is seen.
--- NOTE | 2020-03-15 09:45 | EKG REPORT ---
SEVERITY:- NORMAL ECG - SINUS RHYTHM : Confirmed by: Kenyatta Franco MD 15-Mar-2020 09:44:51
== END 2020-03-15 03:16 | disposition home or self-care (01) ==
LOC: ER 23:01
DX: R42 Dizziness and giddiness (principal); I95.9 Hypotension, unspecified; Z90.710 Acquired absence of both cervix and uterus; Z79.899 Other long term (current) drug therapy; Z88.8 Allergy status to other drugs, medicaments and biological substances
CPT/HCPCS: 93005; 99285; 96360; 36415; 85025; 80053; 81001; 85379; 71260; 93010; J7030

== ENCOUNTER 2020-04-23 08:00 | Emergency (ER) | payer BC ==
--- NOTE | 2020-04-23 09:29 | ER Document Report ---
ED General - General Chief Complaint: Anxiety Stated Complaint: POSSIBLE ANXIETY Time Seen by Provider: 04/23/20 08:47 Primary Care Provider: GAVIN GAN MD [Primary Care Provider] - Follow up as needed Notes: 29-year-old female with past medical history of anxiety, ptsd and partial hysterectomy on March 03 presenting with episode of worsening nausea, vomiting and concerns for dehydration in the last 24 hours. Patient states that when her anxiety gets really bad she has these typical symptoms. 3 weeks ago she was given Xanax by her primary care provider. Discussed with her additional providers who felt that this was not the best option for her and discussed weaning off of this medication. Patient initially went cold turkey off the medication. She took a dose of the medication last night because she was having bad anxiety, with associated nausea and vomiting. States she is uncertain as to how she should have tapered off the meds and is concerned she is in withdrawl. States that she also has chronic nausea that she has Zofran for. Has had a decreased appetite and unable to keep food down the last 2 days. She was last seen here about a month and a half ago. States that she is concerned that she i s identified as a frequent flyer. She denies any fevers, chills, or additional symptoms at this time. No SI/HI. TRAVEL OUTSIDE OF THE [place] IN LAST 30 DAYS: No - Related Data Allergies/Adverse Reactions: haloperidol [From Haldol] Allergy (Verified 02/21/20 10:54) Past Medical History - Social History Smoking Status: Never Smoker Frequency of alcohol use: None Drug Abuse: None Family History: Arthritis, CAD, CVA, DM, Hyperlipidemia, Hypertension, Malignancy, Thyroid Disfunction Neurological Medical History: Reports: Hx Migraine, Hx Seizures Endocrine Medical History: Reports: Hx Hypothyroidism Renal/ Medical History: Denies: Hx Kidney Stones, Hx Peritoneal Dialysis GI Medical History: Reports: Hx Gastroesophageal Reflux Disease, Hx Irritable Bowel, Hx Ulcer Skin Medical History: Reports Hx Eczema Psychiatric Medical History: Reports: Hx Depression Past Surgical History: Reports: Hx Section, Hx Gynecologic Surgery - endometriosis - Immunizations Immunizations up to date: Yes Hx Diphtheria, Pertussis, Tetanus Vaccination: Yes Review of Systems - Review of Systems Constitutional: No symptoms reported EENT: No symptoms reported Cardiovascular: No symptoms reported Respiratory: No symptoms reported Gastrointestinal: See HPI Genitourinary: No symptoms reported Female Genitourinary: No symptoms reported Musculoskeletal: No symptoms reported Neurological/Psychological: See HPI Physical Exam - Vital signs Vitals: Temp Pulse Resp BP Pulse Ox 98.5 F 93 20 98/72 L 99 04/23/20 08:05 04/23/20 08:05 04/23/20 08:05 04/23/20 08:05 04/23/20 08:05 Interpretation: Hypotensive. No: Tachycardic, Febrile - Notes Notes: Adult General: GENERAL: Alert, interacts well. shaking. HEAD: Normocephalic, atraumatic EYES: Pupils equal, round and reactive to light. Extraocular movements intact. ENT: Oral mucosa dry, tongue midline. Oropharynx unremarkable. Airway patent. Nares patent. NECK: Full range of motion. Supple. Trachea midline. No lymphadenopathy. LUNGS: Clear to auscultation bilaterally, no wheezes, rales, or rhonchi. No respiratory distress. Nontender chest wall. HEART: Regular rate and rhythm. No murmurs, rubs or gallops. ABDOMEN: Soft, nontender. Nondistended. (-) Victor sign. GENITOURINARY: Deferred EXTREMITIES: Moves all 4 extremities spontaneously. No edema, normal radial and dorsal pedis pulses bilaterally. No cyanosis. BACK: normal distal neurovascular exam. Moves all extremities with full range of motion. NEUROLOGICAL: Alert and oriented x3. Normal speech. Strength 5/ 5 in all extremities. PSYCH: pressured speech, concerned, worried. SKIN: Warm, dry, normal turgor. No rashes or lesions noted. Course - Re-evaluation Re-evalutation: 04/23/20 10:44 I discussed with patient that I am still pending her lab results. She is currently receiving IV fluids. I discussed with her that the last medication she was prescribed for her anxiety was versed. She states that this medication did help to provide her some relief of her anxiety. I also discussed tapering off of a benzodiazepine. I do not suspect that her symptoms are due to medication withdrawal as she discontinued the medication 1 week ago and she had worsening nausea vomiting and shaking starting this morning. I suspect that this is due to increased anxiety at this time. As she has had Versed in the past I will going give her a dose now help alleviate her immediate symptoms. She has a follow-up with her psychiatrist tomorrow. I recommend that she follows up with them. I will not send the patient home on any additional bren odiazepines at this time. I did discuss with her that she does need to have better management of her anxiety and to have close follow-up with her providers to help manage this. 04/23/20 12:08 She reports history still nauseous at this time. We will give another dose of Zofran. States that her anxiety has decreased. And that she does feel better. I will order another dose of Zofran and then reassess. 04/23/20 12:54 Patient was evaluated. Patient states that she feels less anxious and is no longer experiencing nausea. Discussed with patient the importance of following up with her primary care and mental health to follow-up for her increasing anxiety and nausea associated with it. Discussed return precautions to include worsening symptoms or the development of new symptoms. Patient acknowledges and verbalizes understanding of instructions and plan. All questions answered. - Vital Signs Vital signs: Temp Pulse Resp BP Pulse Ox 99 F 69 16 105/86 H 100 04/23/20 13:15 04/23/20 13:15 04/23/20 13:15 04/23/20 13:15 04/23/20 13:15 - Laboratory Result Diagrams: 04/23/20 10:15 04/23/20 10:15 Laboratory results interpreted by me: 04/23/20 04/23/20 10:15 10:15 Plt Count 456 H Lymph % (Auto) 12.2 L Absolute Neuts (auto) 8.4 H Seg Neutrophils % 83.4 H BUN 6 L ALT 38 H Discharge - Discharge Clinical Impression: Anxiety Nausea & vomiting Qualifiers: Vomiting type: unspecified Vomiting Intractability: non-intractable Qualified Code(s): R11.2 - Nausea with vomiting, unspecified Condition: Stable Disposition: HOME, SELF-CARE Instructions: Antinausea Medication ([facility]), Anxiety ([facility]), Intravenous (IV) Fluids ([facility]) Additional Instructions: Please follow-up with your mental health and primary care provider in regards to her anxiety. Please return to the emergency department if you have worsening symptoms or development of new symptoms. Referrals: GAVIN GAN MD [Primary Care Provider] - Follow up as needed
[2020-04-23] MEDS ORDERED: NORMAL SALINE 1000 ML 1,000 ML IV ONE (09:32)
[2020-04-23] MEDS ORDERED: ONDANSETRON HCL INJ/PF 4 MG/2 ML SDV IV ONE ×2 (09:33→12:08)
[2020-04-23 10:26] LABS: ABSOLUTE LYMPHOCYTES (AUTO) 1.2 10^3/uL (0.5-4.7); ABSOLUTE MONOCYTES (AUTO) 0.4 10^3/uL (0.1-1.4); ABSOLUTE NEUT (AUTO) 8.4 10^3/uL (1.7-8.2); BASOPHILS % (AUTO) 0.3 % (0-2); EOSINOPHILS % (AUTO) 0.1 % (0-6); HEMATOCRIT 42.6 % (36.0-47.0); HEMOGLOBIN 14.4 g/dL (12.0-15.5); LYMPHOCYTES % (AUTO) 12.2 % (13-45); MEAN CORPUSCULAR HGB CONC 33.8 g/dL (32.0-36.0); MEAN CORPUSCULAR VOLUME 86 fl (80-97); PLATELET COUNT 456 10^3/uL (150-450); RED BLOOD COUNT 4.96 10^6/uL (3.72-5.28); RED CELL DISTRIBUTION WIDTH 12.9 % (11.5-14.0); SEGMENTED NEUTROPHILS % (AUTO) 83.4 % (42-78); TOTAL CELLS COUNTED % (AUTO) 100 %
[2020-04-23] MEDS ORDERED: MIDAZOLAM 2 MG/2 ML INJ IV ONE (10:44)
[2020-04-23 10:47] LABS: ALBUMIN 4.8 g/dL (3.5-5.0); ALKALINE PHOSPHATASE 65 U/L (38-126); ANION GAP 8 (5-19); ASPARTATE AMINO TRANSFERASE 31 U/L (14-36); BILIRUBIN,TOTAL 0.6 mg/dL (0.2-1.3); BLOOD UREA NITROGEN 6 mg/dL (7-20); CALCIUM 10.2 mg/dL (8.4-10.2); CARBON DIOXIDE 26 mmol/L (22-30); CHLORIDE 104 mmol/L (98-107); GLUCOSE 108 mg/dL (75-110); POTASSIUM 4.3 mmol/L (3.6-5.0); TOTAL PROTEIN 8.1 g/dL (6.3-8.2)
[2020-04-23 13:17] VITALS: BP 105/86
== END 2020-04-23 13:15 | disposition home or self-care (01) ==
LOC: ER 08:00
DX: F41.9 Anxiety disorder, unspecified (principal); R11.2 Nausea with vomiting, unspecified; Z79.899 Other long term (current) drug therapy
CPT/HCPCS: 96376; 99283; 96361; 96374; 96375; 36415; 83735; 85025; 80053; J2250; J2405; J7030